=== PATIENT | female | born 1935 | race Caucasian/White ===

== ENCOUNTER 2016-12-29 15:47 | Inpatient (IN) ==
[2016-12-29 16:43] LABS: MANUAL DIFF NEEDED? NO
[2016-12-29 16:59] LABS: EOS# 0.12 X1000 (0.0-0.7); HEMATOCRIT 34.1 % (37.0-47.0); LYMPH# 2.11 X1000 (1.2-3.4); MCHC 32.3 g/dL (33-37); MCV 92.9 FL (81-99); MONO# 0.33 X1000 (0.11-0.59); MONO% 8.1 % (1.7-9.3); NEUT% 35.9 % (42.2-75.2); PLT 205 X1000 (130-400); RBC 3.67 XMIL (4.2-5.4)
--- NOTE | 2016-12-29 17:03 | PROVIDER DOCUMENTATION ---
HPI-General Adult - General Chief Complaint: Altered Mental Status Stated Complaint: AMS/DEMENTIA Time Seen by Provider: 12/29/16 16:46 Source: family Allergies/Adverse Reactions: Patient Allergies Allergy/AdvReac Type Severity Reaction Status Date / Time No Known Allergies Allergy Verified 12/24/16 14:49 Home Medications: Home Medication List Medication Instructions Recorded Confirmed Last Taken Type Omeprazole 20 mg PO DAILY 06/18/15 12/29/16 12/29/16 07:00 History 20 MG Tramadol [Ultram] 50 mg PO QAM 06/18/15 12/29/16 12/29/16 07:00 History 50 MG Tramadol [Ultram] 100 mg PO QHS 09/19/16 12/29/16 12/28/16 20:00 History 100 MG Divalproex E.r. [Depakote ER] 1,000 mg PO QHS 30 Days 10/13/16 12/29/16 20:00 Rx 1000 MG Docusate Sodium [Colace] 100 mg PO QHS #30 capsule 10/13/16 12/29/16 12/28/16 20 :00 Rx 100 MG Donepezil [Aricept] 10 mg PO QHS 30 Days 10/13/16 12/29/16 12/28/16 20:00 Rx 10 MG Duloxetine [Cymbalta] 30 mg PO QHS 30 Days 10/13/16 12/29/16 12/28/16 20:00 Rx 30 MG Mirtazapine [Remeron] 15 mg PO QHS #30 tablet 10/13/16 12/29/16 12/28/16 20:00 Rx 15 MG Multivit,Fe,Ca,FA & Min [Thera M 1 each PO DAILY #30 tablet 10/13/16 12/29/16 07:00 Rx Plus] 1 EACH Polyethylene Glycol 3350 [Miralax] 17 gm PO DAILY #30 powder, packet 10/13/1612/29/16 07:00 Rx 17 GM Risperidone [Risperdal M-Tab] 0.5 mg PO QAM #30 tab.rapdis 10/13/16 12/29/1609/16 07:00 Rx 0.5 MG Risperidone [Risperdal M-Tab] 2 mg PO QHS #30 tab.rapdis 10/13/16 12/29/1612/28 20:00 Rx 2 MG Trazodone [Desyrel] 50 mg PO QHS #30 tablet 10/13/16 12/29/16 12/28/16 20:00 Rx 50 MG - History of Present Illness -Gen Adult Nature of Presenting Problems: 81 year old WF presents with daughter. daughter (who is primary caregiver) reports her mother has dementia/alzheimers and over the last week, the patient has been unable to ambulate. daughter reports prior to a week ago, pt was using walker. over the last week, pt has developed the inability to walk and when she does, the gait is a shuffling gait. daughter reports pt has been eating/ drinking well without NVD/F/C. pt is in no distress. easily awakens to verbal/ tactile stimulus. Review of Systems - Adult - REVIEW OF SYSTEMS - ADULT Constitutional: reports: no symptoms reported. denies: chills, fever, fatique Eyes: reports: no symptoms reported. denies: discharge, redness Ears, Nose, Mouth & Throat: reports: no symptoms reported. denies: hoarseness, throat pain, throat swelling Cardiovascular: reports: no symptoms reported. denies: chest pain, palpitations , syncope Respiratory: reports: no symptoms reported. denies: chronic cough, cough, shortness of breath, wheezing Gastrointestinal: reports: no symptoms reported. denies: abdominal pain, diarrhea, difficulty swallowing, nausea, poor appetite, vomiting Genitourinary: reports: see HPI, frequent UTI's. denies: dysuria, hematuria, urgency Musculoskeletal: reports: no symptoms reported. denies: bone pain, joint pain, joint swelling, neck pain Integumentary: reports: no symptoms reported. denies: hives, itching, skin sores/ulcer Neurological: reports: see HPI. denies: syncope Psychiatric: reports: see HPI, depression Endocrine: reports: no symptoms reported Hematologic/Lymphatic: reports: no symptoms reported Allergic/Immunologic: reports: no symptoms reported, frequent infections All Other Systems: Reviewed and Negative Past History - Adult - PAST MEDICAL HISTORY-ADULT Review of Records: reports: Old Records Reviewed, Nursing Assessment Review, Medications Reviewed, Social history reviewed & non-contributory. Major Childhood Illnesses: reports: denies history Cardiovascular: reports: HTN (pt was removed from all HTN meds 3mo ago by PMD), hyperlipidemia Respiratory: reports: denies history Gastrointestinal: reports: GERD Obstetrical/Gynecological: reports: denies history Genitourinary: reports: chronic UTI's Musculoskeletal: reports: denies history Neurological: reports: Alzheimer's, dementia Psychiatric: reports: other (dementia/paranoia) Endocrine/Immune: reports: denies history Other Conditions: reports: denies history - PRIOR SURGERIES/PROCEDURES Surgical/Procedure History: reports: appendectomy, cholecystectomy, hysterectomy , hernia repair - IMMUNIZATION STATUS Childhood Immunizations: See Nurse Assessment Flu Vaccine: See Nurse Assessment - FAMILY HISTORY Family History: reviewed, not pertinent - SOCIAL HISTORY Smoking: denies, non-smoker Substance Use: none/never Alcohol Use Frequency: never Physical Exam-General - PHYSICAL EXAM-ADULT Initial Vital Signs Reviewed: Yes - CONSTITUTIONAL General Appearance: appears well, alert, no apparent distress. negative: mild distress, moderate distress, severe distress - EYES Eyes: pink conjunctivae. negative: PERRL/EOMI (right pupil shaped like a cashew , isnot round, reactive to light; left pupil is pinpoint, nonreactive.), conjuctival exudate, photophobia, sclera injected, scleral icterus - HEAD, EARS, NOSE, MOUTH & THROAT HENMT: normocephalic/atraumatic, moist mucous membranes, normal ENT inspection, TMs normal. negative: pharynx normal, pharyngeal erythema, tonsillar exudate - NECK Neck: non-tender, full range of motion, supple, normal inspection. negative: C- spine tenderness, limited range of motion, tender lateral, tender midline - RESPIRATORY Respiratory: chest non-tender, lungs clear, normal breath sounds, no pleuratic chest pain, no respiratory distress, no accessory muscle use. negative: respiratory distress, decreased breath sounds, accessory muscle use, crackles, rales, rhonchi, stridor, wheezing - CARDIOVASCULAR Cardiovascular: normal peripheral pulses, regular rate, rhythm - GASTROINTESTINAL (ABDOMEN) Abdominal Exam: normal bowel sounds, non tender, soft. negative: distended, guarding, rigid, tenderness - MUSCULOSKELETAL Back Exam: normal inspection, no CVA tenderness, no vertebral tenderness. negative: CVA tenderness, decreased range of motion, swelling, vertebral tenderness Extremity: normal range of motion, non-tender, normal inspection, no pedal edema , no calf tenderness, normal capillary refill, pelvis stable. negative: normal gait, abnormal NV exam, calf tenderness, deformity, erythema, inflammation, slow capillary refill, swelling, tenderness Peripheral Pulses: radial (R): 3+, radial (L): 3+, dorsalis-pedis (R): 3+, dorsalis-pedis (L): 3+ - SKIN Integumentary: normal color, normal turgor, warm/dry. negative: pallor, petechiae, purpura, rash, swelling - NEUROLOGIC Neurologic: no motor/sensory deficits, abnormal gait (shuffling gate, pt was able to ambulate several steps), negative romberg's sign. negative: facial droop, focal weakness, motor weakness, sensory deficit - PSYCHIATRIC Psych/Mental Status: disoriented x 3 (pt unable to tell me date, time, event leading to ED visit; she reports she is 35 year old), depressed affect. negative: normal mood/affect, normal thought content, normal thought process, oriented x 3 Progress - PLAN OF CARE/RESULTS Progress/Plan/Lab Results: Vital Signs - 8 hr 12/29/16 15:59 Temperature 97.9 F Pulse Rate 75 Respiratory Rate 18 Blood Pressure 202/66 O2 Sat by Pulse Oximetry 100 Laboratory Results - last 24 hr 12/29/16 16:32 WBC 4.06 L RBC 3.67 L Hgb 11.0 L Hct 34.1 L MCV 92.9 MCH 30.0 MCHC 32.3 L RDW Std Deviation 15.6 H Plt Count 205 MPV 9.0 Immature Gran % (Auto) 0.0 Neut % (Auto) 35.9 L Lymph % (Auto) 52.0 H [place] % (Auto) 8.1 Eos % (Auto) 3.0 Baso % (Auto) 1.0 H Immature Gran # (Auto) 0.00 Neut # (Auto) 1.46 Lymph # (Auto) 2.11 [place] # (Auto) 0.33 Eos # (Auto) 0.12 Baso # (Auto) 0.04 Orders Category Date Time Status Saline Loc NOW Care 12/29/16 16:05 Active CHEST-2 VIEWS [RAD] Stat Exams 12/29/16 16:06 Taken HEAD W/O CONTRAST [CT] Stat Exams 12/29/16 16:05 Ordered BLOOD CULTURE [BLDCUL] Stat Lab 12/29/16 16:32 Received CBC WITH ELECTRONIC DIFF [HEME] Stat Lab 12/29/16 16:32 Completed CK PROFILE [SP CHEM] Stat Lab 12/29/16 16:32 Received COMPREHENSIVE METABOLIC PANEL [CHEM] Stat Lab 12/29/16 16:32 Received LACTATE, PLASMA [CHEM] Stat Lab 12/29/16 16:32 Received PROTIME WITH INR [COAG] Stat Lab 12/29/16 16:32 Received PTT [COAG] Stat Lab 12/29/16 16:32 Received TROPONIN T Stat Lab 12/29/16 16:32 Received URINALYSIS W/POSS RFLX CULT-1 [URINALYSIS] Stat Lab 12/29/16 16:05 Uncollected URINE DRUG SCREEN Stat Lab 12/29/16 16:05 Uncollected VALPROIC ACID [TDM] Stat Lab 12/29/16 16:58 Ordered EKG [EKG] Stat Ther 12/29/16 16:05 Ordered Vital Signs - 24 hr 12/29/16 15:59 Temperature 97.9 F Pulse Rate 75 Respiratory Rate 18 Blood Pressure 202/66 O2 Sat by Pulse Oximetry 100 Result Diagrams: 12/29/16 16:32 12/29/16 16:32 - XRAY 1 XRAY Study: Chest Impression: Normal (per radiologist) - CT/MRI 1 CT Study: Head Impression: Normal (per radiologist) - CONSULTS/PCP/HOSPITALIST Notification #1 *Consult/PCP/Hospitalist*: Dr. Voss Time Discussed: 18:10 Consult Disposition: Will see in ED, Admit Departure - Departure Time of Disposition Decision: 18:14 DIAGNOSIS: Unable to ambulate Disposition: ADMITTED INPATIENT 09 Certified Medical Emergency: Emergent Condition: Stable - Critical Care Note This patient required my direct & personal management of CC.: No Attestation - Physician/ TORY Attestation Patient care was provided by Advanced Practice Provider:: Yes Advanced Practice Provider:: Patric Dobbins Advanced Practice Provider documentation review:: The Mid-level provider documentation, treatment plan and medical decision making was reviewed by the physician who agrees with all treatment and medical decision making by the P.
[2016-12-29 17:08] LABS: INR 1.04; PTT 25.8 Seconds (22.0-36.0)
[2016-12-29 17:17] LABS: AGAP 11; ALBUMIN 2.9 g/dL (3.5-5.0); ALKALINE PHOSPHATASE 94 U/L (32-104); BUN 20 mg/dL (8-22); CALCIUM 8.7 mg/dL (8.8-10.2); CHLORIDE 104 mmol/L (98-107); CK PROFILE 61 U/L (24-173); COSMO 289; GOT 24 U/L (10-30); GPT 10 U/L (10-36); POTASSIUM 3.8 mmol/L (3.5-5.1); SODIUM 144 mmol/L (136-145); TCO2 29 mmol/L (25-35); TOTAL BILIRUBIN 0.18 mg/dL (0.20-1.00)
[2016-12-29 17:27] LABS: URINE CULTURE NEEDED? NO; URINE MICRO REVIEW NEEDED? NO; URINE SOURCE CATH
[2016-12-29 17:36] LABS: BILIRUBIN URINE NEGATIVE (NEGATIVE); COLOR YELLOW; GLUCOSE URINE NEGATIVE (NEGATIVE); LEUKOCYTES URINE NEGATIVE (NEGATIVE); NITRITE URINE NEGATIVE (NEGATIVE); PROTEIN URINE 30 mg/dL (NEGATIVE); SP GRAVITY URINE 1.012; TURBIDITY URINE CLEAR (CLEAR); UROBILINOGEN URINE NORMAL (NORMAL)
[2016-12-29 17:44] LABS: UR AMPHETAMINES QUAL NONE DETECTED (NONE DETECT); UR BARBITUATES QUAL NONE DETECTED (NONE DETECT); UR BENZODIAZEPIN QUAL NONE DETECTED (NONE DETECT); UR CANNABINOIDS QUAL NONE DETECTED (NONE DETECT); UR COCAINE QUAL NONE DETECTED (NONE DETECT); UR METHADONE QUAL NONE DETECTED (NONE DETECT); UR OPIATES QUAL NONE DETECTED (NONE DETECT); UR OXYCODONE QUAL NONE DETECTED (NONE DETECT); UR PCP QUAL NONE DETECTED (NONE DETECT)
[2016-12-29 17:49] LABS: BLOOD URINE NEGATIVE (NEGATIVE); UR EPITHELIAL CELLS <10 /HPF (<10); URINE BACTERIA NEGATIVE /HPF; URINE RBC <10 /HPF (<10); URINE WBC <10 /HPF (<10)
--- NOTE | 2016-12-29 17:56 | Diag Imaging Result Document ---
PROCEDURE NAME: HEAD W/O CONTRAST - 12/29/2016 CT HEAD WITHOUT CONTRAST: FINDINGS: A dose reduction protocol was used. Compared with 12/24/2016. There are some atrophic changes similar to the previous exam. There are moderate chronic microvascular ischemic changes similar to the previous exam. There is no indication of recent infarct, although acute infarcts may not be immediately visible. There is no evidence of hemorrhage, mass effect or midline shift. IMPRESSION: Atrophic changes and chronic microvascular ischemic changes similar to 12/24/2016. No visible acute process. No hemorrhage or mass effect.
--- NOTE | 2016-12-29 18:12 | Diag Imaging Result Document ---
PROCEDURE NAME: CHEST-2 VIEWS - 12/29/2016 FRONTAL AND LATERAL CHEST, 2 VIEWS: The lungs are well expanded. The heart is mildly prominent. The vessels are not distended. No pleural effusions. Mild regurgitation paratracheal prominence has an appearance similar to that of the prior exam. No free air beneath the diaphragm. IMPRESSION: Stable chest.
[2016-12-29] MEDS ORDERED: APRESOLINE IV ONE (19:54)
--- NOTE | 2016-12-29 20:57 | HISTORY AND PHYSICAL ---
PRIMARY CARE PHYSICIAN: Dr. Asher REASON FOR ADMISSION: Two or 3 day history of progressive weakness and confusion. HISTORY OF PRESENT ILLNESS: Ms. Leila Koehler is an 81-year-old lady with past medical history of dementia, rheumatoid arthritis, reflux disease, hyperlipidemia. She has been admitted to the behavioral unit at [facility] on a few occasions. She was seen in the ER about a week ago because of generalized weakness and sent home. She was brought in by the family because of concerns about the patient who lives alone, that her weakness has progressed over the last 3 days. They also noted she is more confused than usual. I am unable to get any meaningful history from this patient. She denies any pain and denies any breathing difficulty. She does agree that she is weak but that is the extent of the history I could get from the patient. She will follow basic commands, however. REVIEW OF SYSTEMS: For obvious reasons could not be obtained and there were no family members at bedside. ALLERGIES: No known allergies. MEDICATIONS: She takes the following medications: Depakote 1000 mg daily, Colace 100 mg at bedtime, Aricept 10 mg daily, Cymbalta 30 mg at bedtime, Remeron 50 mg at bedtime, multivitamin tablets once a day, omeprazole 20 mg daily, MiraLAX 17 g daily, risperidone 0.25 mg in the morning and 2 mg at bedtime, tramadol 50 mg q.a.m., tramadol 100 mg at bedtime, trazodone 50 mg at bedtime. FAMILY HISTORY: Cannot be obtained. No family members at bedside. SOCIAL HISTORY: Apparently patient lives alone per the nurse. No reported history of alcohol or drug use per old records. PAST SURGICAL HISTORY: Per old records, umbilical hernia repair, cholecystectomy, appendectomy, hysterectomy. LABORATORY WORK: White count 4000, hemoglobin and hematocrit of 11 and 34, platelets 205,000 with slightly elevated lymphocytosis. Chemistry: BUN 20, creatinine 0.8. Calcium 8.7. Troponin is negative. CK 61. Albumin 2.9. Lactate 1.6. PTT is normal. Urinalysis is grossly normal. Urine drug screen essentially negative. Valproic acid level was 34. Urinalysis is essentially within normal limits. CT head just showed old unchanged atrophic changes from prior CT scan and no acute intracranial process. Chest x-ray is also clear. EKG shows normal sinus rhythm. No ST changes. PHYSICAL EXAMINATION: VITAL SIGNS: Blood pressure between 211 to 220 systolic to diastolic range of 104 to 120. Temperature 96.2 degrees, respirations 18, pulse 66, O2 saturation 100% on room air. GENERAL: She is a chronically ill, mildly anorexic, elderly woman, who portrays no distress whatsoever. She is alert and oriented to person. Affect appears to be normal as is her mood. HEENT: Head is normocephalic, atraumatic. Eyes, PERRL, EOMI. She is anicteric and not pale. ENT and oropharynx exam is grossly normal except for some mild xerostomia. No sinus cyanosis. NECK: Neck is supple. She has no JVD but mild hepatojugular reflux. No bruit. No thyromegaly. CHEST: Clear to auscultation with diminshed air entry in both lung lowery. CARDIOVASCULAR: 1st, 2nd, and 4th heart sounds are heard. No other gallops heard. No murmurs appreciated. Rhythm is regular. ABDOMEN: Protuberant, soft, nontender. No mass, megaly. Bowel sounds are hypoactive. RECTAL: Deferred at this time. EXTREMITIES: Patient has slight tremors distally in her extremities. Pulses distally in all extremities have good volume and are symmetrical. No clubbing or peripheral cyanosis. No edema. NEUROLOGICAL EXAMINATION: No gross focal deficits although this exam was very limited. Cranial nerves II through XII grossly intact although limited because patient did not follow all my commands especially as it relates to her 7th cranial nerve. Otherwise her motor power rated 3 to 4 over 5 on the upper extremity and 2 to 3 in the lower extremities. SKIN: Intact. No breakdown, lesion, edema. Mild decreased skin turgor. VASCULAR: Exam appears grossly normal visually. She has normal tone. ASSESSMENT: 1. Uncontrolled hypertension, new onset versus subclinical cerebrovascular accident. 2. Dehydration. 3. Encephalopathy? hypotensive encephalopathy versus toxic encephalopathy from medication. 4. Dementia with behavioral disturbances. 5. Anemia of chronic anemia, probably of chronic inflammation. 6. Moderate malnutrition. 7. Dehydration. PLAN: At this time patient will be admitted and subsequently worked up for etiology of her acute confusional decline. If the patient is still confused, it would not be out of place to proceed with MRI to rule out occult subclinical CVA which her on usual blood pressure could be reflective of. However, otherwise if the patient's cognitive decline has stabilized, would suggest just treating her blood pressure cautiously and in addition to this, hydrated her because she appears to be slightly dehydrated clinically and per her lab work. Consult social scientist to get her admitted. Anemia workup is currently being ordered to see if there is any other possible reversible etiology for her confusion. Start patient on antihypertensive and cautiously as stated earlier, control her blood pressure. Consult physical therapy. DVT prophylaxis will be instituted as the patient does not appear to be very active and has been pretty much almost bed- bound. I will take the liberty of starting low-dose aspirin just in case this unusual blood pressure may represent subclinical CVA. cc: Adi Guerin MD Primary care physician ELIANE
[2016-12-29] MEDS ORDERED: NORVASC PO ONE ×2 (21:32→23:51)
[2016-12-29] MEDS ORDERED: NS 1,000 ML IV SCH (23:51)
[2016-12-29] MEDS ORDERED: NORCO-7.5 PO PRN (23:51)
[2016-12-29] MEDS ORDERED: ASPIRIN PO ONE (23:51)
[2016-12-29] MEDS ORDERED: TYLENOL PO PRN (23:51)
[2016-12-29] MEDS ORDERED: ZOFRAN IV PRN (23:51)
[2016-12-30] MEDS: COLACE PO SCH ×2 (00:22→22:06)
[2016-12-30] MEDS: ARICEPT PO SCH ×2 (00:22→22:06)
[2016-12-30] MEDS: CYMBALTA PO SCH ×2 (00:22→22:06)
[2016-12-30] MEDS: LOVENOX SUBQ SCH ×2 (00:23→22:07)
[2016-12-30] MEDS: DEPAKOTE ER PO SCH ×2 (00:23→22:07)
[2016-12-30 01:26] LABS: MAGNESIUM 1.8 mg/dL (1.5-2.7)
[2016-12-30 05:32] LABS: MANUAL DIFF NEEDED? NO
[2016-12-30 05:49] LABS: BASO% 0.4 % (0.0-0.8); EOS# 0.12 X1000 (0.0-0.7); EOS% 2.2 % (0.0-10.0); HEMATOCRIT 33.8 % (37.0-47.0); HEMOGLOBIN 11.2 g/dL (12.0-16.0); LYMPH# 2.99 X1000 (1.2-3.4); LYMPH% 55.1 % (20.5-51.1); MCH 30.2 PG (27-31); MCHC 33.1 g/dL (33-37); MCV 91.1 FL (81-99); MONO# 0.33 X1000 (0.11-0.59); MONO% 6.1 % (1.7-9.3); MPV 8.7 FL (7.4-10.4); NEUT% 36.2 % (42.2-75.2); PLT 194 X1000 (130-400); RBC 3.71 XMIL (4.2-5.4)
[2016-12-30 05:55] LABS: AGAP 10; BUN 16 mg/dL (8-22); CALCIUM 8.9 mg/dL (8.8-10.2); CHLORIDE 104 mmol/L (98-107); COSMO 284; POTASSIUM 3.3 mmol/L (3.5-5.1); SODIUM 142 mmol/L (136-145); TCO2 28 mmol/L (25-35)
[2016-12-30] MEDS: NORVASC PO SCH (09:00)
[2016-12-30] MEDS: THERA M PLUS PO SCH (09:00)
[2016-12-30] MEDS: MIRALAX PO SCH (09:00)
[2016-12-30] MEDS: PRILOSEC PO SCH (09:00)
[2016-12-30] MEDS: RISPERDAL M-TAB PO SCH (09:00)
[2016-12-30] MEDS ORDERED: VENOFER 300 MG in NS 250 ML IV ONE (14:20)
[2016-12-30] MEDS: NS 1,000 ML IV SCH (14:22)
--- NOTE | 2016-12-30 14:50 | PROGRESS NOTE ---
DATE: 12/30/2016 SUBJECTIVE: Today, Ms. Koehler referred to be doing a little better. She did not really have any complaints. OBJECTIVE: Vital signs: Blood pressure is 154/72, pulse 92, respirations 18, temperature is 98 degrees. General: Ms. Koehler is an 81-year-old female. She was in bed. She did not seem to be in any distress. HEENT: Mucosa is pink and dry. Anicteric. Acyanotic. Neck: Supple. Chest: Clear. Cardiovascular: Regular rate and rhythm. Abdomen: Soft, is nontender. Bowel sounds are present. There is no hepatosplenomegaly, there is an old right upper quadrant surgical scar consistent with a possible cholecystectomy. Extremities: No pedal edema. SAMPLE CUTTER: Patient is alert, is awake, is oriented to person and to place. Disoriented to time. LABORATORY DATA: WBC is 5.43. Hemoglobin 11.2, platelet count of 194,000. Chemistries reviewed, completely normal, except for potassium of 3.3. Ferritin is 25, ridiculously low. Iron is 37, also low. TSH is 8.35. ASSESSMENT: Ms. Koehler is an 81-year-old female, who was brought in to the hospital for generalized weakness and confusion. This afternoon she looks more alert. I think most of her problem is due to severe dehydration. We will make sure we correct all the underlying electrolyte abnormalities as well. She is also on a lot of sedatives/antipsychotic which I think we will have to be extremely careful with them. 1. Toxic metabolic encephalopathy. 2. Iron deficiency anemia. 3. Clinical dehydration. 4. Subclinical hypothyroidism. PLAN: We will going to do TPO antibodies. We will also do lipids to check on the cholesterol to see if we would need to treat. The patient really does not have chronic symptoms. However the generalized weakness, the confusion/cognitive decline could all be potential manifestations of hypothyroidism. We will go ahead and start her on therapy. Will continue with the IV fluids and give her 300 mg iron infusion cc: Donal Monsivais MD [facility] CENTERJuanito
[2016-12-31] MEDS: LOVENOX SUBQ SCH ×2 (04:07→21:53)
[2016-12-31] MEDS: NS 1,000 ML IV SCH ×3 (04:08→17:14)
[2016-12-31 06:20] LABS: MANUAL DIFF NEEDED? NO
[2016-12-31 06:33] LABS: BASO% 0.5 % (0.0-0.8); EOS# 0.12 X1000 (0.0-0.7); EOS% 2.8 % (0.0-10.0); HEMATOCRIT 30.8 % (37.0-47.0); HEMOGLOBIN 10.1 g/dL (12.0-16.0); LYMPH# 2.16 X1000 (1.2-3.4); LYMPH% 50.6 % (20.5-51.1); MCH 30.1 PG (27-31); MCHC 32.8 g/dL (33-37); MCV 91.9 FL (81-99); MONO# 0.42 X1000 (0.11-0.59); MONO% 9.8 % (1.7-9.3); MPV 9.3 FL (7.4-10.4); NEUT% 36.3 % (42.2-75.2); PLT 189 X1000 (130-400); RBC 3.35 XMIL (4.2-5.4)
[2016-12-31 06:51] LABS: AGAP 10; BUN 12 mg/dL (8-22); CALCIUM 7.9 mg/dL (8.8-10.2); CHLORIDE 103 mmol/L (98-107); COSMO 275; HDL 55 mg/dL (45-65); LDL 75 mg/dL; POTASSIUM 3.2 mmol/L (3.5-5.1); SODIUM 138 mmol/L (136-145); TCO2 25 mmol/L (25-35); TRIGLYCERIDES 89 mg/dL (35-135); VLDL 18 mg/dL
[2016-12-31] MEDS: SYNTHROID PO SCH (06:54)
[2016-12-31] MEDS: PRILOSEC PO SCH (08:30)
[2016-12-31] MEDS: THERA M PLUS PO SCH (08:31)
[2016-12-31] MEDS: NORVASC PO SCH (08:31)
[2016-12-31] MEDS: MIRALAX PO SCH (08:31)
[2016-12-31] MEDS: RISPERDAL M-TAB PO SCH (08:31)
[2016-12-31] MEDS ORDERED: KLOR-CON PO ONE (10:29)
--- NOTE | 2016-12-31 11:18 | PROGRESS NOTE ---
DATE: 12/31/2016 SUBJECTIVE: Today, Ms. Koehler was doing fine. She was actually resting very peacefully in bed. The daughter, who works here in the hospital, was at the bedside. She referred that Ms. Koehler has been up and ate her breakfast. OBJECTIVE: Vital signs: Blood pressure is 187/97, pulse is 69, respirations 18 , temperature 97.8. General: Ms. Koehler is an 81-year-old, female. She was in bed. She did not seem to be in any distress. HEENT: Mucosa is slightly dry. Anicteric. Acyanotic. [place]. Neck: Supple. Chest: Good air entry bilateral. No crepitations. No rhonchi. Cardiovascular: Regular rate and rhythm. Abdomen: Soft, nontender. There is no hepatosplenomegaly. There is an old right upper quadrant surgical scar, consistent with previous cholecystectomy. Extremities: No pedal edema. REGIONAL TRUCK DRIVER: Patient was sleepy, but easily arousable. Follows commands. LABORATORY DATA: WBC is 4.27, hemoglobin is 10.1, platelet count of 189. Chemistry is reviewed. Potassium is 3.2. The rest of chemistry is normal. The patient's ferritin is 25 and vitamin D is 23.4, which is slightly insufficient. B12 and folate is normal. ASSESSMENT AND PLAN: 1. Toxic metabolic encephalopathy. This is progressively improved. 2. Iron deficiency anemia. The patient is status post one infusion of Venofer. Will continue with oral iron medications. 3. Clinical dehydration. Will continue hydration. 4. Subclinical hypothyroidism. We will treat this because patient has cognitive decline. 5. History of dementia with psychotic features. Patient was admitted to [facility] a couple months ago for 3 weeks. Was discharged on Depakote and some other antipsychotics. Will continue the same. 6. Vitamin D insufficiency. Will replace that. So, I think in general, Ms. Koehler is doing fine. We are going to discontinue the Burgos catheter, going to be replacing the thyroid hormones. We have discussed at length with the daughter who is the power of tax attorney, and is a worker in the hospital with some medical background. She eventually wants rehab for her mom, and eventually get her to a long-term care. For today, we will continue with the gentle hydration. We will replace her potassium and continue with iron and vitamin and vitamin D replacement. We anticipate that we will be able to discharge the patient to rehab, hopefully tomorrow or the day after. cc: Donal Monsivais MD MTDD
[2016-12-31] MEDS: ULTRAM PO SCH (21:52)
[2016-12-31] MEDS: DEPAKOTE ER PO SCH (21:52)
[2016-12-31] MEDS: CYMBALTA PO SCH (21:53)
[2016-12-31] MEDS: COLACE PO SCH (21:53)
[2016-12-31] MEDS: ARICEPT PO SCH (21:53)
[2017-01-01] MEDS: NS 1,000 ML IV SCH ×3 (04:06→18:15)
[2017-01-01 05:47] LABS: MANUAL DIFF NEEDED? NO
[2017-01-01 06:03] LABS: BASO% 0.3 % (0.0-0.8); EOS# 0.15 X1000 (0.0-0.7); HEMATOCRIT 31.7 % (37.0-47.0); HEMOGLOBIN 10.4 g/dL (12.0-16.0); LYMPH# 2.19 X1000 (1.2-3.4); LYMPH% 58.4 % (20.5-51.1); MCH 30.1 PG (27-31); MCHC 32.8 g/dL (33-37); MCV 91.9 FL (81-99); MONO# 0.34 X1000 (0.11-0.59); MONO% 9.1 % (1.7-9.3); MPV 8.7 FL (7.4-10.4); NEUT% 28.2 % (42.2-75.2); PLT 181 X1000 (130-400); RBC 3.45 XMIL (4.2-5.4)
[2017-01-01 06:34] LABS: AGAP 8; BUN 8 mg/dL (8-22); CALCIUM 8.5 mg/dL (8.8-10.2); CHLORIDE 111 mmol/L (98-107); COSMO 286; SODIUM 145 mmol/L (136-145); TCO2 26 mmol/L (25-35)
[2017-01-01] MEDS: SYNTHROID PO SCH (07:05)
[2017-01-01] MEDS: MIRALAX PO SCH (09:39)
[2017-01-01] MEDS: ULTRAM PO SCH ×2 (09:40→22:11)
[2017-01-01] MEDS: RISPERDAL M-TAB PO SCH (09:40)
[2017-01-01] MEDS: THERA M PLUS PO SCH (09:41)
[2017-01-01] MEDS: NORVASC PO SCH (09:41)
[2017-01-01] MEDS: PRILOSEC PO SCH (09:41)
--- NOTE | 2017-01-01 10:31 | PROGRESS NOTE ---
DATE: 01/01/2017 SUBJECTIVE: Today, Ms. Koehler refers to be doing fine. She was actually in the bed being dressed by the daughter and a CARROTING MACHINE OPERATOR. OBJECTIVE: Vital Signs: Blood pressure is 180/80, respirations are 16, pulse is 69, temperature is 97.8 degrees. General Examination: Ms. Koehler is an 81-year-old, female. She was in bed, was not in any distress. HEENT: Mucosa is pink and moist. Anicteric and acyanotic. Neck: Supple. Chest: Good air entry bilaterally. No crepitations. No rhonchi. Cardiovascular: Regular rate and rhythm. Abdomen: Soft and nontender. There is no hepatosplenomegaly. There is an old right upper quadrant surgical scar consistent with previous cholecystectomy. Extremities: No pedal edema. AIRCRAFT LIFE SUPPORT FITTER: Patient is awake and alert, and follows commands. Laboratory Data: WBC is 3.75, hemoglobin is 10.4, platelet count of 181,000. Chemistry: Sodium is 145, potassium is 4, chloride is 111, bicarb is 26. ASSESSMENT: 1. Toxic metabolic encephalopathy. This is remarkably improved. 2. Iron deficiency anemia. Patient is status post 1 infusion of Venofer. We will continue with the oral iron supplements. 3. Clinical dehydration, improved. 4. Subclinical hypothyroidism. We are treating because the patient has symptoms of dementia and we think this is probably contributing to that. 5. History of dementia with psychotic features. The patient was admitted to [facility] a couple of weeks ago. She is currently on Depakote and another antipsychotics. 6. Vitamin D insufficiency. We will continue to replace this. PLAN: In general, I think Ms. Koehler is doing a whole lot better. She has been able to sit up in a chair. She is tolerating her diet. Per the daughter, she thinks the mother is looking a whole lot better. We will be awaiting rehab arrangement from the pediatric social worker to discharge the patient. If we are able to get a bed, patient will be discharged today; if not, first thing tomorrow morning. cc: Donal Monsivais MD
[2017-01-01] MEDS: LOVENOX SUBQ SCH (22:11)
[2017-01-01] MEDS: DEPAKOTE ER PO SCH (22:11)
[2017-01-01] MEDS: CYMBALTA PO SCH (22:11)
[2017-01-01] MEDS: ARICEPT PO SCH (22:11)
[2017-01-01] MEDS: COLACE PO SCH (22:11)
[2017-01-02] MEDS: NS 1,000 ML IV SCH (05:45)
[2017-01-02] MEDS: SYNTHROID PO SCH ×2 (05:54→06:03)
[2017-01-02] MEDS: ULTRAM PO SCH (09:28)
[2017-01-02] MEDS: MIRALAX PO SCH (09:30)
[2017-01-02] MEDS: RISPERDAL M-TAB PO SCH (09:30)
[2017-01-02] MEDS: PRILOSEC PO SCH (09:30)
[2017-01-02] MEDS: NORVASC PO SCH (09:30)
[2017-01-02] MEDS: THERA M PLUS PO SCH (09:30)
--- NOTE | 2017-01-02 13:28 | DISCHARGE SUMMARY ---
ADMISSION DATE: 12/29/2016 DISCHARGE DATE: 01/02/2017 PRIMARY PROCEDURE: Head CT showed atrophic changes and chronic microvascular ischemic changes on 12/24/2016. There are no acute processes, no hemorrhage or mass effect. DISCHARGE DIAGNOSES: 1. Toxic metabolic encephalopathy, remarkably improved. 2. Iron deficiency anemia status post one infusion of Venofer. Continue oral iron supplements. 3. Clinical dehydration, improved. 4. Subclinical hypothyroidism. The patient is being treated because of symptoms of dementia, which is contributing to that. 5. History of dementia with psychotic features. The patient was admitted to [facility] a few weeks ago. Currently on Depakote and other antipsychotic. Continue those. 6. Vitamin D deficiency. Continue supplementation. HOSPITAL COURSE: Briefly, Ms. Koehler is an 81-year-old female with past medical history of dementia, rheumatoid arthritis, GERD, hyperlipidemia. She has been admitted to the behavioral unit at [facility] on a few occasions. She was seen in our ED about a week ago because of generalized weakness and sent home. She was brought in again by her family because of concerns that the patient lives alone and that her weakness has progressed over the last few days and she was noted to be more confused than usual. Head CT was performed in the ED and did not show anything acute. Patient was rehydrated. It was felt that most of her issues were coming from severe dehydration. We made sure to correct all underlying electrolyte abnormalities as well. The patient was on a lot of sedatives and antipsychotics. They also did TPO antibodies, as well as lipids to check her cholesterol. The patient did not really have any chronic symptoms, however just generalized weakness, confusion and cognitive decline could all be potential manifestations of hypothyroidism. So, she was started on therapy for that, as well as IV iron infusion with oral supplementation and continued on IV fluids. Clinically the patient has improved. Her toxic metabolic encephalopathy has remarkably improved. Her clinical dehydration has also improved. The patient refers to feeling a whole lot better. She is able to sit up in a chair. She is now tolerating a diet. Even the daughter who has been with the patient feels that she is also looking better. We did contact social media content manager for rehab at discharge. The patient is appropriate for rehab discharge today. VITAL SIGNS: Temperature is 97.6 degrees, heart rate 72, respirations 18, blood pressure 181/70, and O2 is 97% on room air. DISCHARGE DIET: Regular. DISCHARGE MEDICATIONS: As per Dr. Monsivais. Please see MAR. FOLLOW UP: The patient is being discharged to rehab at [facility]. She will need to follow up with her primary care physician, Dr. Asher, in 7-10 days. Patient can return to the ED for any worsening of symptoms. DISCHARGE TIME: 30 minutes. Dictated by DELANEY Patel for Donal Monsivais MD cc: MD Jane Morrow MD
[2017-01-02 14:11] VITALS: BP 179/80
== END 2017-01-02 15:09 ==
LOC: ED 15:47 → SUATTDRO 21:22 → 4N 21:22
PROVIDERS: ATTEND Internal Medicine

== ENCOUNTER 2019-10-24 08:30 | Inpatient (IN) ==
[2019-10-24 09:07] LABS: ALLEN TEST YES; BE 3.4 mmoll (-3.0-3.0); BLOOD TYPE ARTERIAL; HCO3-(ACT) 27.4 mmoll (20.0-26.0); O2(CT) 18.2 mL/dL (15.0-23.0); O2HB 92.7 % (95.0-99.0); PCO2(98.6) 36 mmHg (35-45); PO2(98.6) 61 mmHg (60-100); SAMPLE BLOOD; SAO2 95.2 % (95.0-100.0); pH(98.6) 7.48 (7.35-7.45)
[2019-10-24 09:08] LABS: MODALITY NRB
--- NOTE | 2019-10-24 09:13 | Diag Imaging Result Doc PS360 ---
EXAM: CHEST-1 VIEW HISTORY: sob TECHNIQUE: Single view COMPARISON: 08-03-08. FINDINGS: The lungs are well expanded. The heart is not enlarged. The vessels are not distended. There are base infiltrates. No effusion identified. IMPRESSION: Base infiltrates Electronically signed by Luis Alberto Pulido 10/24/2019 9:11 AM
[2019-10-24 09:22] LABS: BASO# 0.02 X1000 (0.0-0.2); BASO% 0.1 % (0.0-0.8); HEMATOCRIT 43.2 % (37.0-47.0); HEMOGLOBIN 13.1 g/dL (12.0-16.0); IMM GRAN# 0.02 X1000 (0.0-0.04); IMM GRAN% 0.1 % (0.0-0.5); LYMPH# 1.31 X1000 (1.2-3.4); LYMPH% 9.4 % (20.5-51.1); MCHC 30.3 g/dL (33-37); MCV 85.7 FL (81-99); MONO# 0.24 X1000 (0.11-0.59); MONO% 1.7 % (1.7-9.3); MPV 9.6 FL (7.4-10.4); NEUT# 12.29 X1000 (1.4-6.5); NEUT% 88.7 % (42.2-75.2); PLT 410 X1000 (130-400); RBC 5.04 XMIL (4.2-5.4); RDW 15.3 % (11.5-14.5); WBC 13.88 X1000 (4.8-10.8)
[2019-10-24] MEDS ORDERED: NS 1,500 ML IV ONE (09:22)
[2019-10-24 09:26] LABS: INR 1.34; PROTIME 16.8 Seconds (11.0-16.0)
[2019-10-24 09:27] LABS: PTT 39.5 Seconds (22.3-41.8)
[2019-10-24] MEDS ORDERED: PITRESSIN 40 UNIT in NS 100 ML IV SCH (09:30)
[2019-10-24] MEDS ORDERED: EPINEPHRINE 4 MG in NS 250 ML IV SCH (09:30)
[2019-10-24] MEDS ORDERED: ZOSYN 4.5 GM in NS 100 ML IV SCH (09:30)
[2019-10-24] MEDS ORDERED: VANCOMYCIN IV PER PHARMACY MISC SCH (09:30)
[2019-10-24] MEDS ORDERED: LEVOPHED 8 MG in D5 1/2 NS 250 ML IV SCH (09:30)
[2019-10-24 09:35] LABS: AGAP 16; ALB/GLOB RATIO 0.7; ALKALINE PHOSPHATASE 82 U/L (32-104); BUN 19 mg/dL (8-22); CALCIUM 10.4 mg/dL (8.8-10.2); CHLORIDE 103 mmol/L (98-107); COSMO 291; CREATININE 0.8 mg/dL (0.5-0.9); ESTIMATED GFR > 60; GLUCOSE 124 mg/dL (70-104); GOT 18 U/L (10-30); GPT 6 U/L (10-36); POTASSIUM 4.7 mmol/L (3.5-5.1); SODIUM 144 mmol/L (136-145); TCO2 25 mmol/L (25-35); TOTAL BILIRUBIN 0.39 mg/dL (0.20-1.00); TOTAL PROTEIN 7.1 g/dL (6.3-8.3)
--- NOTE | 2019-10-24 09:40 | PROVIDER DOCUMENTATION ---
HPI-Respiratory General - General Chief Complaint: SEPSIS ALERT Stated Complaint: hypoxia Time Seen by Provider: 10/24/19 08:39 Source: family (daughter), half-way records Allergies/Adverse Reactions: Patient Allergies Allergy/AdvReac Type Severity Reaction Status Date / Time No Known Allergies Allergy Verified 10/24/19 10:47 Home Medications: Home Medication List Medication Instructions Recorded Confirmed Last Taken Type Omeprazole 20 mg PO DAILY 06/18/15 10/24/19 12/29/16 07:00 History 20 MG Polyethylene Glycol 3350 [Miralax] 17 gm PO DAILY #30 powder, packet 10/13/16 10/24/19 12/29/16 07:00 Rx 17 GM Alprazolam 1 tab PO TID PRN 10/24/19 10/24/19 Unknown History Ascorbic Acid [Vitamin C] 1 cap PO DAILY 10/24/19 10/24/19 Unknown History Divalproex [Depakote Sprinkle] 2 cap PO HS 10/24/19 10/24/19 Unknown History Divalproex [Depakote Sprinkle] 2 cap PO QAM 10/24/19 10/24/19 Unknown History Duloxetine [Cymbalta] 2 cap PO DAILY 10/24/19 10/24/19 Unknown History Ferrous Sulfate 1 tab PO BID 10/24/19 10/24/19 Unknown History Guaifenesin [Mucus Relief] 1 tab PO TID 10/24/19 10/24/19 Unknown History Hydrocodone/Acetaminophen [[place] 1 tab PO Q4H PRN PRN 10/24/19 10/24/19 Unknown History 5-325 Tablet] Levothyroxine Sodium [Synthroid] 1 tab PO DAILY 10/24/19 10/24/19 Unknown History Mirtazapine [Remeron] 30 mg PO QHS 10/24/19 10/24/19 Unknown History Scopolamine 1.5 mg/72 Hr Patch 1 patch TD DIRECTED 10/24/19 10/24/19 Unknown History [Transderm-Scop] Sucralfate [Carafate] 1 gm PO DIRECTED 10/24/19 10/24/19 Unknown History - History of Present Illness-Resp Nature of Presenting Problem: Patient is an 83 yo F, [facility] resident, with PMH of Dementia, who was sent from the [place] due to low O2 sats. Patient is non-verbal and bedbound at [facility]. Upon arrival, patient was saturating 92% on 10 Lpm non-rebreather. Review of Systems - Adult - REVIEW OF SYSTEMS - ADULT ROS:: unobtainable per condition Constitutional: reports: see HPI Eyes: reports: see HPI Ears, Nose, Mouth & Throat: reports: see HPI Cardiovascular: reports: see HPI Respiratory: reports: see HPI Gastrointestinal: reports: see HPI Genitourinary: reports: see HPI Musculoskeletal: reports: see HPI Integumentary: reports: see HPI Neurological: reports: see HPI Past History - Adult - PAST MEDICAL HISTORY-ADULT Review of Records: reports: Nursing Assessment Review, Medications Reviewed, Social history reviewed & non-contributory. Major Childhood Illnesses: reports: denies history Cardiovascular: reports: HTN (pt was removed from all HTN meds 3mo ago by PMD), hyperlipidemia Respiratory: reports: denies history Gastrointestinal: reports: GERD Obstetrical/Gynecological: reports: denies history Genitourinary: reports: chronic UTI's Musculoskeletal: reports: denies history Neurological: reports: Alzheimer's, dementia Psychiatric: reports: other (dementia/paranoia) Endocrine/Immune: reports: denies history Other Conditions: reports: denies history - PRIOR SURGERIES/PROCEDURES Surgical/Procedure History: reports: appendectomy, cholecystectomy, hysterectomy , hernia repair - IMMUNIZATION STATUS Childhood Immunizations: See Nurse Assessment Flu Vaccine: See Nurse Assessment - FAMILY HISTORY Family History: reviewed, not pertinent Physical Exam-General - PHYSICAL EXAM-ADULT Initial Vital Signs Reviewed: Yes (Tachycardic, tachypnic, low SPO2..) - CONSTITUTIONAL General Appearance: cachetic, other (Non verbal) - EYES Eyes: PERRL/EOMI - HEAD, EARS, NOSE, MOUTH & THROAT HENMT: normocephalic/atraumatic - NECK Neck: non-tender - RESPIRATORY Respiratory: rales (Bilateral lower lung lowery) - CARDIOVASCULAR Cardiovascular: no edema, tachycardia, systolic murmur - GASTROINTESTINAL (ABDOMEN) Abdominal Exam: normal bowel sounds, non tender, soft - LYMPHATIC Lymphatic: no adenopathy - MUSCULOSKELETAL Extremity: other (Upper and lower extremity contractures) - SKIN Integumentary: normal color - NEUROLOGIC Neurologic: other (Bedbound) - PSYCHIATRIC Psych/Mental Status: other (Non verbal) Progress - PLAN OF CARE/RESULTS Progress/Plan/Lab Results: 02/24/20 10:20 Influenza Screen - Final Nasopharyngeal 10/24/19 10:20 Stool Occult Blood (ISI) - Final Stool Laboratory Results - last 24 hr 10/24/19 10/24/19 10/24/19 08:50 08:54 08:54 WBC RBC Hgb Hct MCV MCH MCHC RDW Std Deviation Plt Count MPV Immature Gran % (Auto) Neut % (Auto) Lymph % (Auto) [place] % (Auto) Eos % (Auto) Baso % (Auto) Immature Gran # (Auto) Neut # (Auto) Lymph # (Auto) [place] # (Auto) Eos # (Auto) Baso # (Auto) Segmented Neutrophils Band Neutrophils Lymphocytes Monocytes PT INR PTT (Actin FS) Specimen Type ARTERIAL Sample Site R RADIAL pH 7.48 H pCO2 36 pO2 61 HCO3 27.4 H Base Excess 3.4 H Oxyhemoglobin 92.7 L ABG O2 Sat (Calculated) 18.2 ABG O2 Saturation 95.2 ABG Carboxyhemoglobin 1.60 ABG Methemoglobin 1.0 Anirudh Test YES A-a O2 Difference 607.0 Total Hemoglobin 14.0 Lactate 2.80 H Liter Flow 15.0 Blood Gas Modality NRB FiO2 % 100.0 Sodium 144 Potassium 4.7 Chloride 103 Carbon Dioxide 25 Anion Gap 16 BUN 19 Creatinine 0.8 Estimated GFR/1.73 m2 > 60 BUN/Creatinine Ratio 24 Glucose 124 H Calculated Osmolality 291 Calcium 10.4 H Total Bilirubin 0.39 AST 18 ALT 6 L Alkaline Phosphatase 82 Creatine Kinase Troponin T High Sens Total Protein 7.1 Albumin 3.0 L Globulin 4.1 Albumin/Globulin Ratio 0.7 Plasma Lactate 2.7 H Urine Source Urine Color Urine Turbidity Urine pH Ur Specific [place] Urine Protein Ur Glucose (Stick) Ur Ketones (Stick) Urine Blood Urine Nitrite Urine Bilirubin Urobilinogen Dipstick Urine Leukocytes Urine WBC (Auto) Urine RBC (Auto) U Epithel Cells (Auto) Urine Bacteria (Auto) Urine Crystals Small Round Cells Urine Casts Urine Yeast-like Cells 10/24/19 10/24/19 10/24/19 08:54 08:54 08:54 WBC 13.88 H RBC 5.04 Hgb 13.1 Hct 43.2 MCV 85.7 MCH 26.0 L MCHC 30.3 L RDW Std Deviation 15.3 H Plt Count 410 H MPV 9.6 Immature Gran % (Auto) 0.1 Neut % (Auto) 88.7 H Lymph % (Auto) 9.4 L [place] % (Auto) 1.7 Eos % (Auto) 0.0 Baso % (Auto) 0.1 Immature Gran # (Auto) 0.02 Neut # (Auto) 12.29 H Lymph # (Auto) 1.31 [place] # (Auto) 0.24 Eos # (Auto) 0.00 Baso # (Auto) 0.02 Segmented Neutrophils 52 Band Neutrophils 32 H Lymphocytes 12 L Monocytes 4 PT 16.8 H INR 1.34 PTT (Actin FS) 39.5 Specimen Type Sample Site pH pCO2 pO2 HCO3 Base Excess Oxyhemoglobin ABG O2 Sat (Calculated) ABG O2 Saturation ABG Carboxyhemoglobin ABG Methemoglobin Anirudh Test A-a O2 Difference Total Hemoglobin Lactate Liter Flow Blood Gas Modality FiO2 % Sodium Potassium Chloride Carbon Dioxide Anion Gap BUN Creatinine Estimated GFR/1.73 m2 BUN/Creatinine Ratio Glucose Calculated Osmolality Calcium Total Bilirubin AST ALT Alkaline Phosphatase Creatine Kinase Troponin T High Sens 51 H Total Protein Albumin Globulin Albumin/Globulin Ratio Plasma Lactate Urine Source Urine Color Urine Turbidity Urine pH Ur Specific [place] Urine Protein Ur Glucose (Stick) Ur Ketones (Stick) Urine Blood Urine Nitrite Urine Bilirubin Urobilinogen Dipstick Urine Leukocytes Urine WBC (Auto) Urine RBC (Auto) U Epithel Cells (Auto) Urine Bacteria (Auto) Urine Crystals Small Round Cells Urine Casts Urine Yeast-like Cells 10/24/19 10/24/19 08:54 10:15 WBC RBC Hgb Hct MCV MCH MCHC RDW Std Deviation Plt Count MPV Immature Gran % (Auto) Neut % (Auto) Lymph % (Auto) [place] % (Auto) Eos % (Auto) Baso % (Auto) Immature Gran # (Auto) Neut # (Auto) Lymph # (Auto) [place] # (Auto) Eos # (Auto) Baso # (Auto) Segmented Neutrophils Band Neutrophils Lymphocytes Monocytes PT INR PTT (Actin FS) Specimen Type Sample Site pH pCO2 pO2 HCO3 Base Excess Oxyhemoglobin ABG O2 Sat (Calculated) ABG O2 Saturation ABG Carboxyhemoglobin ABG Methemoglobin Anirudh Test A-a O2 Difference Total Hemoglobin Lactate Liter Flow Blood Gas Modality FiO2 % Sodium Potassium Chloride Carbon Dioxide Anion Gap BUN Creatinine Estimated GFR/1.73 m2 BUN/Creatinine Ratio Glucose Calculated Osmolality Calcium Total Bilirubin AST ALT Alkaline Phosphatase Creatine Kinase 54 Troponin T High Sens Total Protein Albumin Globulin Albumin/Globulin Ratio Plasma Lactate Urine Source CATH Urine Color YELLOW Urine Turbidity HAZY Urine pH 6.5 Ur Specific [place] 1.026 Urine Protein 200 A Ur Glucose (Stick) NEGATIVE Ur Ketones (Stick) TRACE A Urine Blood MODERATE A Urine Nitrite NEGATIVE Urine Bilirubin NEGATIVE Urobilinogen Dipstick 2 A Urine Leukocytes NEGATIVE Urine WBC (Auto) <10 Urine RBC (Auto) <10 U Epithel Cells (Auto) <10 Urine Bacteria (Auto) 4+ Urine Crystals Not Reportable Small Round Cells Not Reportable Urine Casts Not Reportable Urine Yeast-like Cells NONE SEEN Orders Category Date Time Status [facility] Routine AdmDCTranf 10/24/19 10:23 Active Activity - Up with Assistance ORDERED Care 10/24/19 13:36 Active Apply Mechanical Device [QM] ORDERED Care 10/24/19 13:36 Active Cardiac Monitoring NOW Care 10/24/19 08:57 Active DVT/PE Risk Assess/Protocol [QM] ORDERED Care 10/24/19 09:22 Active Elevate Head of Bed DIRECTED Care 10/24/19 13:36 Active Encourage Fluids DIRECTED Care 10/24/19 13:36 Active [place] Cath Insertion ORDERED Care 10/24/19 09:22 Active IV Insertion ORDERED Care 10/24/19 09:22 Completed IV Insertion NOW Care 10/24/19 08:57 Completed Intake and Output-Strict ORDERED Care 10/24/19 09:22 Active Intake and Output-Strict Q 8-HR ASSESS Care 10/24/19 13:36 Active NEWS Score >or=5:Order NEWS Bundle S.O. NOW Care 10/24/19 08:55 Active Notify Physician ORDERED Care 10/24/19 09:22 Active Notify Physician if: ORDERED Care 10/24/19 09:22 Active Notify Provider of NEWS Score NOW Care 10/24/19 08:57 Active Nursing- Assist w/ IS as order ORDERED Care 10/24/19 13:36 Active Nursing- MD Consult Request ROUTINE Care 10/24/19 10:23 Completed Resuscitation Status Routine Care 10/24/19 10:14 Ordered Sepsis Bolus Completion ORDERED Care 10/24/19 09:22 Active Turn, Cough and Deep Breathe Q2HR Care 10/24/19 13:36 Active Update & Confirm Home Medicati ROUTINE Care 10/24/19 10:23 Completed Vital Signs Order Q 4-HR ASSESS Care 10/24/19 13:36 Completed Vital Signs Order Q30M Care 10/24/19 09:22 Completed Z-Document. for Tele Applied ORDERED Care 10/24/19 13:36 Active Palliative Care Consult [OM.CSS] Routine Cons 10/24/19 10:23 Active Physician/Provider Consults Routine Cons 10/24/19 10:23 Ordered Social Service Consult Routine Cons 10/24/19 13:36 Active CHEST-1 VIEW [RAD] Stat Exams 10/24/19 08:57 Completed ABG [RESP] Routine Lab 10/24/19 08:50 Completed BLOOD CULTURE [BLDCUL] Stat Lab 10/24/19 08:55 Results CBC WITH DIFF [HEME] Q24H Lab 10/25/19 06:00 Ordered CBC WITH DIFF [HEME] Q24H Lab 10/26/19 06:00 Ordered CBC WITH DIFF [HEME] Q24H Lab 10/27/19 06:00 Ordered CBC WITH DIFF [HEME] Q24H Lab 10/28/19 06:00 Ordered CBC WITH DIFF [HEME] Q24H Lab 10/29/19 06:00 Ordered CBC WITH DIFF [HEME] Q24H Lab 10/30/19 06:00 Ordered CBC WITH DIFF [HEME] Q24H Lab 10/31/19 06:00 Ordered CBC WITH DIFF [HEME] Stat Lab 10/24/19 08:54 Completed CK PROFILE [SP CHEM] Stat Lab 10/24/19 08:54 Completed COMPREHENSIVE METABOLIC PANEL [CHEM] Q24H Lab 10/25/19 06:00 Ordered COMPREHENSIVE METABOLIC PANEL [CHEM] Q24H Lab 10/26/19 06:00 Ordered COMPREHENSIVE METABOLIC PANEL [CHEM] Q24H Lab 10/27/19 06:00 Ordered COMPREHENSIVE METABOLIC PANEL [CHEM] Q24H Lab 10/28/19 06:00 Ordered COMPREHENSIVE METABOLIC PANEL [CHEM] Q24H Lab 10/29/19 06:00 Ordered COMPREHENSIVE METABOLIC PANEL [CHEM] Q24H Lab 10/30/19 06:00 Ordered COMPREHENSIVE METABOLIC PANEL [CHEM] Q24H Lab 10/31/19 06:00 Ordered COMPREHENSIVE METABOLIC PANEL [CHEM] Stat Lab 10/24/19 08:54 Completed INFLUENZA SCREEN A/B Stat Lab 10/24/19 10:20 Completed LACTATE, PLASMA [CHEM] Q3H Lab 10/24/19 08:54 Completed LACTATE, PLASMA [CHEM] Q3H Lab 10/24/19 13:00 Completed LACTATE, PLASMA [CHEM] Q3H Lab 10/24/19 14:42 Completed PROTIME WITH INR [COAG] Stat Lab 10/24/19 08:54 Completed PTT [COAG] Stat Lab 10/24/19 08:54 Completed SPUTUM CULTURE WITH GRAM STAIN [RM] Routine Lab 10/24/19 10:23 Uncollected Stool [OCCULT BLOOD SCREENING] [STOOL] Stat Lab 10/24/19 10:20 Completed TROPONIN T HIGH SENSITIVITY Stat Lab 10/24/19 08:54 Completed URINALYSIS W/POSS RFLX CULT [URINALYSIS] Stat Lab 10/24/19 10:15 Completed URINE MANUAL MICROSCOPIC [URINALYSIS] Stat Lab 10/24/19 10:15 Completed 0.9% Sodium Chloride Inj [Ns] 1,000 ml Med 10/24/19 10:23 Active IV 100 mls/hr 0.9% Sodium Chloride Inj [Ns] 1,500 ml Med 10/24/19 09:22 Discontinued IV 999 mls/hr 0.9% Sodium Chloride Inj [Ns] 100 ml Med 10/24/19 09:30 Discontinued Vasopressin [Pitressin] 40 unit IV As Directed mls/hr 0.9% Sodium Chloride Inj [Ns] 250 ml Med 10/24/19 09:30 Discontinued Epinephrine 4 mg IV As Directed mls/hr Acetaminophen [Tylenol] Med 10/24/19 10:23 Active 650 mg PO Q4H PRN PRN Budesonide [Pulmicort] Med 10/24/19 19:30 Active 0.5 mg INH RTBID Dextrose 5%-0.45% NaCl Inj [D5 1/2 Ns] 250 ml Med 10/24/19 09:30 Discontinued Norepinephrine [Levophed] 8 mg IV As Directed mls/hr Ipratropium [place] Neb [Atrovent Neb] Med 10/24/19 11:30 Active 0.5 mg INH RTQ4H Levalbuterol Neb [Xopenex Neb] Med 10/24/19 11:30 Active 1.25 mg INH RTQ4H Levofloxacin 750 mg/D5w [Levaquin 750 mg/D5w] Med 10/24/19 10:00 Discontinued 750 mg in 150 ml IV Q24H Pharmacy Order [Vancomycin IV Per Pharmacy] Med 10/24/19 09:30 Active 1 each MISC DIRECTED Piperacillin/Tazobactam [Zosyn] 4.5 gm Med 10/24/19 09:30 Discontinued 0.9% Sodium Chloride Inj [Ns] 100 ml IV Q6H Aerosol Treatments Routine Oth 10/24/19 10:23 Completed BIPAP Stat Oth 10/24/19 08:44 Active Incentive Spirometer Routine Oth 10/24/19 13:36 Completed O2 Per Protocol Stat Oth 10/24/19 08:57 Completed Oxygen Device Routine Oth 10/24/19 13:36 Completed Pulse Oximetry Routine Oth 10/24/19 10:23 Completed Telemetry [OM.EQ] Routine Oth 10/24/19 13:36 Active Physical Therapy Eval/Treatment [OM.PT] Routine Ther 10/24/19 13:36 Active Transfer/Admit Order [TRANSFER] Routine Transfer 10/24/19 10:13 Completed Result Diagrams: 10/24/19 08:54 10/24/19 08:54 - CONSULTS/PCP/HOSPITALIST Notification #1 *Consult/PCP/Hospitalist*: Hospitalist [id number] Time Discussed: 09:50 (Will admit to Dr. Monsivais ) Consult Disposition: Admit Departure - Departure Date of Disposition Decision: 10/24/19 Time of Disposition Decision: 09:36 DIAGNOSIS: Elevated lactic acid level, Elevated troponin level Sepsis Qualifiers: Sepsis type: sepsis due to unspecified organism Sepsis acute organ dysfunction status: with acute organ dysfunction Severe sepsis acute organ dysfunction type: acute respiratory failure Acute respiratory failure type: with hypoxia Severe sepsis shock status: unspecified Qualified Code(s): A41.9 - Sepsis, unspecified organism Dementia Qualifiers: Dementia type: unspecified type Dementia behavioral disturbance: without behavioral disturbance Qualified Code(s): F03.90 - Unspecified dementia without behavioral disturbance Pneumonia Qualifiers: Pneumonia type: due to unspecified organism Laterality: bilateral Lung location: lower lobe of lung Qualified Code(s): J18.1 - Lobar pneumonia, unspecified organism Disposition: ADMITTED INPATIENT 09 Certified Medical Emergency: Emergent Condition: Critical - Critical Care Note This patient required my direct & personal management of CC.: Yes Total Time (mins): 35 Critical Care Statement: This patient required my direct personal management to treat or rule out processes, the absence of which, could potentiallly result in sudden, clinically significant life or limb threatening deterioration. Attestation - Physician/ TORY Attestation Patient care was provided by Advanced Practice Provider:: No The physician spent face to face time with patient:: Yes Advanced Practice Provider documentation review:: Supervising physician onsite and consulted in the evaluation and care of this patient. The physician did have a face to face encounter with the patient.
[2019-10-24] MEDS ORDERED: LEVAQUIN 750 MG/D5W 750 MG/150 ML IVPB IV SCH (10:00)
[2019-10-24] MEDS ORDERED: TYLENOL PO PRN (10:23)
[2019-10-24 10:37] LABS: URINE SOURCE CATH
[2019-10-24 10:53] LABS: BILIRUBIN URINE NEGATIVE (NEGATIVE); BLOOD URINE MODERATE (NEGATIVE); COLOR YELLOW; GLUCOSE URINE NEGATIVE (NEGATIVE); KETONE URINE TRACE mg/dL (NEGATIVE); LEUKOCYTES URINE NEGATIVE (NEGATIVE); NITRITE URINE NEGATIVE (NEGATIVE); PH URINE 6.5; PROTEIN URINE 200 mg/dL (NEGATIVE); SP GRAVITY URINE 1.026; TURBIDITY URINE HAZY (CLEAR); UROBILINOGEN URINE 2 mg/dL (NORMAL)
[2019-10-24 10:57] LABS: UR EPITHELIAL CELLS <10 /HPF (<10); URINE BACTERIA 4+ /HPF; URINE RBC <10 /HPF (<10); URINE WBC <10 /HPF (<10)
[2019-10-24 10:59] LABS: BANDS 32 % (0-1); LYMPHS 12 % (21-51); MONO 4 % (1-9); SEGS 52 % (42-75)
--- NOTE | 2019-10-24 11:12 | EKG Report ---
Test Performed on : 10/24/2019 09:31:46 AM Test Reason : HYPOXIA Blood Pressure : / mmHG Vent. Rate : 119 BPM Atrial Rate : 119 BPM P-R Int : 178 ms QRS Dur : 076 ms QT Int : 302 ms P-R-T Axes : 063 -31 064 degrees QTc Int : 424 ms Sinus tachycardia. Left axis deviation Nonspecific ST abnormality Abnormal ECG When compared with ECG of 11-AUG-2017 10:10, Vent. rate has increased BY [address] now depressed in Inferior leads Unconfirmed Result
[2019-10-24 11:17] LABS: URINE YEAST NONE SEEN
--- NOTE | 2019-10-24 11:23 | HISTORY AND PHYSICAL ---
PRIMARY CARE PROVIDER: Dr. Alex Carver. CHIEF COMPLAINT: Shortness of breath. HISTORY OF PRESENT ILLNESS: Ms Leila Koehler is an 83-year-old female with a medical history of severe dementia, who is nearly nonverbal. She has been bed-bound for awhile now coming from [facility]. Apparently, she was found to have low O2 saturations, shortness of breath. She was tachycardic, had a fever of 104.8 that was documented prior to leaving [facility]. She remained hypoxic, was placed on BiPAP. Chest x-ray shows bibasilar pneumonia with signs and symptoms of sepsis. Lactate is elevated. She has been started on broad-spectrum antibiotics and IV fluid hydration. Her daughter is an electrical technology instructor, Maxine Wills. Her phone is [phone]. She just left for [place] yesterday. Speaking to her by phone, apparently last week she was pretty sick, even called in Palliative to discuss end of life as she was nonverbal and essentially unresponsive until this past , which was around 3 days ago, she perked back up and was back to her normal self according to the daughter. So, the daughter left yesterday and went to [place], and should be back on Thursday unless she gets called in to come in sooner, and she is okay if we consult Palliative on this admission. PAST MEDICAL HISTORY: 1. Dementia. 2. Rheumatoid arthritis. 3. GERD. 4. Dyslipidemia. 5. Hypertension. 6. Chronic urinary tract infections. 7. Insomnia. 8. GI bleed history. 9. Hypothyroidism. 10. Chronic constipation. 11. Iron deficiency anemia. SURGICAL HISTORY: 1. Cholecystectomy. 2. Umbilical hernia repair. 3. Appendectomy. 4. Hysterectomy. SOCIAL HISTORY: Denies tobacco, however she does dip snuff. No alcohol. No illicit drug use. She is a resident of [facility] and is a do not resuscitate level 1. FAMILY HISTORY: The daughter denies. ALLERGIES: No known drug allergies. HOME MEDICATIONS: Not reconciled yet. REVIEW OF SYSTEMS: Unable to obtain due to patient's cognitive status. PHYSICAL EXAMINATION: VITAL SIGNS: Temperature 99.2 degrees, heart rate 114, respiratory rate 36, blood pressure 117/86, O2 saturation 98% on BiPAP, 5 feet 4 inches tall, 110 pounds with a BMI of 18.9. GENERAL: Ms. Leila Koehler is an 83-year-old female. She is in no acute distress. She is tolerating a BiPAP. It is reported that she is nonverbal, but she appears to be trying to speak through the BiPAP. Alert. Eyes open. Turns head toward speaker, but does not necessarily nod to questions and will not follow commands, but is purposeful with her movements. HEENT: Atraumatic, normocephalic. Pupils are equal and reactive. Mucous membranes are dry. No teeth. NECK: Trachea midline. CARDIOVASCULAR: S1, S2. Tachycardic rate and rhythm. No rubs, gallops, murmurs. No lower extremity edema. +2 dorsalis and radial pulses. Negative for JVD or carotid bruits. PULMONARY: She is actually clear to auscultate. Bilateral breath sounds decreased in the bases. No accessory muscle use or work of breathing noted. GI: Soft, nontender, nondistended. Positive bowel sounds x4, but hypoactive. There was dried black-colored stool around the rectal entrance or the anal entrance, which could possibly be old blood in the stool. EXTREMITIES: They almost appear somewhat contracted. The knees are bent. Arms are bent. The wrists and the fingers tend to be a little bent. NEUROLOGIC: Opens eyes. Turns head toward speaker. Does not follow commands. Is currently nonverbal, but has a BiPAP mask on. SKIN: Warm, dry, intact. There is no sacral decubitus. It is dark on the bottom, but no openings. Multiple bruising throughout the body. LABORATORY DATA: White blood cells 13,000, hemoglobin 13, hematocrit 43, platelet count 410. INR is 1.34, PTT is 39.5. ABGs: pH 7.48, pCO2 of 36, PO2 61, bicarbonate 27.4, base excess is 3.4, saturation 92.7%. Lactate 2.8 and that was on non-rebreather. Sodium 144, potassium 4.7, BUN 19, creatinine 0.8, glucose 124, calcium 10.4. Bilirubin 0.39, AST 18, ALT 6, CK 54, troponin is 51. Albumin 3.0. Lactate 2.7. IMAGING: Chest x-ray: Bibasilar infiltrates. ASSESSMENT AND PLAN: 1. Healthcare-associated bibasilar pneumonia. She has been started on broad-spectrum antibiotics given the signs and symptoms of sepsis. Currently on BiPAP nebulizers. 2. Acute hypoxemic respiratory failure secondary to pneumonia. She also had a fever of 104.8 that was documented at [facility], so we will go ahead and test her for influenza as well. We will consult Pulmonary. She is on nebulizers. 3. Sepsis secondary to #1. Broad-spectrum antibiotics. We will do serial lactates. Intravenous fluid hydration. 4. Dementia. Waiting for home medications to be reconciled. Apparently, she can still take in nectar thick liquids, so that has been ordered to continue after she passes a swallow after she is off BiPAP. 1. It looked like the stool appeared to be black around the rectum. Will test for blood in the stool, but currently history of iron deficiency anemia, but she has got a normal hemoglobin/ hematocrit. 2. Hypertension is stable at this time. We will hold off on antihypertensives as she is currently septic just to decrease risk for hypotension. 3. Gastroesophageal reflux disease. 4. Rheumatoid arthritis. 5. Hypothyroidism. Waiting for Synthroid to be verified. 6. Resuscitation status is do not resuscitate level 1, and daughter is okay with consulting Palliative Care. Dictated by DELANEY Byrne for Bren Voss MD cc: DELANEY Byrne MD
[2019-10-24] MEDS: XOPENEX NEB INH SCH ×4 (11:28→23:53)
[2019-10-24] MEDS: ATROVENT NEB INH SCH ×4 (11:28→23:53)
[2019-10-24] MEDS: NS 1,000 ML IV SCH ×2 (12:18→21:58)
[2019-10-24] MEDS ORDERED: VANCOMYCIN 1,250 MG in NS 250 ML IV ONE (13:00)
[2019-10-24] MEDS: MAXIPIME 1 GM in NS 50 ML IV SCH (17:01)
[2019-10-24] MEDS: PULMICORT INH SCH (20:10)
[2019-10-24] MEDS ORDERED: NS 500 ML IV ONE (21:49)
[2019-10-24] MEDS ORDERED: ATIVAN IV ONE (21:49)
[2019-10-24] MEDS: OFIRMEV 1000 MG/ISOTONIC SOLN 1,000 MG/100 ML BOTTLE IV PRN (21:59)
[2019-10-25] MEDS: ATROVENT NEB INH SCH ×6 (04:31→22:50)
[2019-10-25] MEDS: XOPENEX NEB INH SCH ×6 (04:31→22:50)
[2019-10-25] MEDS: MAXIPIME 1 GM in NS 50 ML IV SCH ×2 (04:35→16:31)
[2019-10-25] MEDS: NS 1,000 ML IV SCH (05:38)
[2019-10-25] MEDS ORDERED: CALMOSEPTINE OINTMENT TOP PRN (06:19)
[2019-10-25 06:23] LABS: BASO# 0.01 X1000 (0.0-0.2); BASO% 0.1 % (0.0-0.8); HEMATOCRIT 33.9 % (37.0-47.0); HEMOGLOBIN 10.1 g/dL (12.0-16.0); IMM GRAN% 0.8 % (0.0-0.5); LYMPH# 1.79 X1000 (1.2-3.4); LYMPH% 14.9 % (20.5-51.1); MCH 26.3 PG (27-31); MCHC 29.8 g/dL (33-37); MCV 88.3 FL (81-99); MONO# 0.15 X1000 (0.11-0.59); MONO% 1.2 % (1.7-9.3); MPV 9.5 FL (7.4-10.4); NEUT# 9.96 X1000 (1.4-6.5); PLT 255 X1000 (130-400); RBC 3.84 XMIL (4.2-5.4); RDW 15.2 % (11.5-14.5); WBC 12.01 X1000 (4.8-10.8)
[2019-10-25 06:33] LABS: AGAP 12; ALB/GLOB RATIO 0.5; ALKALINE PHOSPHATASE 50 U/L (32-104); BUN 22 mg/dL (8-22); CALCIUM 9.5 mg/dL (8.8-10.2); CHLORIDE 114 mmol/L (98-107); COSMO 296; CREATININE 0.5 mg/dL (0.5-0.9); ESTIMATED GFR > 60; GLUCOSE 103 mg/dL (70-104); GOT 25 U/L (10-30); GPT 7 U/L (10-36); POTASSIUM 3.4 mmol/L (3.5-5.1); SODIUM 147 mmol/L (136-145); TCO2 21 mmol/L (25-35); TOTAL BILIRUBIN 0.25 mg/dL (0.20-1.00); TOTAL PROTEIN 5.8 g/dL (6.3-8.3)
[2019-10-25 06:54] LABS: BANDS 40 % (0-1); LYMPHS 14 % (21-51); SEGS 44 % (42-75)
--- NOTE | 2019-10-25 06:57 | PULMONOLOGY PROGRESS NOTE ---
DATE: 10/24/2019 REQUESTING CLINICIAN: Dr. Voss. REASON FOR CONSULTATION: Respiratory failure, on BiPAP. HISTORY OF PRESENT ILLNESS: Ms. Koehler is an 83-year-old female with severe dementia, who has had a fluctuating illness at the custodial. The patient is nonverbal and can provide no medical history. The patient was found to be hypoxemic with a temperature of 104 degrees, and was brought to the emergency room. Chest x-ray was performed, which revealed patchy bilateral infiltrates. Arterial blood gas reveals a pH of 7.48, pCO2 of 36, PO2 of 61 on a nonrebreather. PAST MEDICAL HISTORY/PROBLEM LIST: 1. Dementia. 2. Rheumatoid arthritis. 3. Recurrent urinary tract infection. 4. Gastroesophageal reflux disease. PAST SURGICAL HISTORY: 1. Status post cholecystectomy. 2. Status post appendectomy. 3. Status post hysterectomy. SOCIAL HISTORY: The patient lives at the custodial. Previously used oral tobacco. No alcohol or cigarette use noted. FAMILY HISTORY: Noncontributory to current presentation. REVIEW OF SYSTEMS: Cannot be obtained. PHYSICAL EXAMINATION: General: A thin, chronically ill-appearing, white female. She opens her eyes, but will not focus on the examiner. She has rhythmic opening and closing of her mouth, with a slightly protruded tongue. Vital Signs: Current temperature 100.9 degrees, blood pressure 130/90, respiratory rate 22, oxygen saturation 99%. HEENT: Pupils are equal. Oropharynx appears dry. Neck: Supple. Chest: Rhonchi bilaterally. Cardiac: Increased rate. S1, S2. Abdomen: Soft. Extremities: Flexed, but not contracted. LABORATORY DATA: White blood count 13.88, hemoglobin 13.1, platelet count 410,000. Urinalysis reveals trace ketones, moderate blood, but no nitrates, and less than 10 white blood cell per high- power field. IMPRESSION: An 83-year-old with: 1. Acute hypoxemic respiratory failure. 2. Aspiration pneumonia. 3. Dementia. 4. Sepsis without evidence of severe sepsis. PLAN: 1. Agree with broad-spectrum antibiotics. 2. Continue bronchodilators. 3. Continue fluids as you are doing. 4. Agree with end-of-life discussions as have been initiated. cc: Marcelo Palmer MD
[2019-10-25] MEDS: PULMICORT INH SCH ×2 (07:44→20:01)
[2019-10-25] MEDS ORDERED: NS 1,000 ML IV SCH (08:33)
[2019-10-25] MEDS ORDERED: NORCO-5 PO PRN (09:37)
--- NOTE | 2019-10-25 09:57 | PROGRESS NOTE ---
DATE: 10/25/2019 INTERVAL HISTORY: No acute events overnight. She has had frequent episodes of fever with T-max of 101.8 degrees and tachycardia. She was able to be weaned down to 50% Ventimask. SUBJECTIVE: Ms. Koehler is nonverbal, is not able to participate in clinical encounter. She moans and groans and frequently coughs. OBJECTIVE: Vital Signs: Currently, temperature 98.3 degrees, pulse 106, respiratory rate 16 blood pressure 168/81, she is saturating 98% on 50% Ventimask. She has 500 mL of urine output. General: She keeps her mouth open. She does have frequent lip-smacking movement of her mouth. Lungs: She has inspiratory crackles in bilateral infra-axillary region. No wheeze, rhonchi. Adequate air entry, bilateral supramammary region. Cardiovascular: S1, S2 normal. Tachycardic. No murmur or gallop. Abdomen: Soft, nontender. Extremities: No lower extremity edema. : She has a Burgos catheter. LABORATORY DATA: Labs suggestive of leukocytosis, normocytic anemia with hemoglobin of 10.1, platelet 255,000, hypernatremia, hypokalemia, hyperchloremia, normal BUN, normal creatinine. MICROBIOLOGY: Stool occult blood test was positive. Urine culture is growing gram-negative rods. IMAGING: No new chest x-ray. ASSESSMENT AND PLAN: 1. Sepsis and acute hypoxic respiratory failure due to bilateral lower lobe likely aspiration pneumonia. Continue intravenous vancomycin, intravenous cefepime, and follow up final blood culture results. I will decrease her intravenous fluid rate. 2. Acute gastrointestinal bleed with positive fecal occult blood test. Her drop in hemoglobin could also be related to intravenous fluids. I will keep her on intravenous pantoprazole, and follow up with CBC. 3. History of dementia with behavioral disturbance. I will continue her home medication of divalproex, mirtazapine, and will add back other medications as tolerated. 4. Hypernatremia, hyperchloremia, hypokalemia. I will decrease the intravenous fluid rate. I will replete her potassium. Her lactic acidosis was improving after intravenous fluid resuscitation. Will continue to monitor the patient inside the hospital. Palliative Care Team has been consulted for goals of care discussion. cc: MD ELIANE Velasco
[2019-10-25] MEDS: PROTONIX IV SCH ×2 (10:17→21:37)
[2019-10-25] MEDS: D5 1/2 NS 1,000 ML IV SCH (10:17)
[2019-10-25] MEDS: SODIUM CHLORIDE 0.9% INJ SCH ×2 (10:18→21:37)
--- NOTE | 2019-10-25 10:20 | SEPSIS: TISSUE PERFUSION ASSMT ---
Sepsis: Tissue Perfusion Assmt - Physical Exam Assessment Date: 10/25/19 Time Assessment Initialized: 09:30 Vital Signs: Last Vital Signs Temp 98.3 F 10/25/19 08:00 Pulse 104 H 10/25/19 08:00 Resp 26 H 10/25/19 08:00 BP 168/81 10/25/19 08:00 Pulse Ox 98 10/25/19 08:00 Height 5 ft 4 in Weight 47.23 kg Lung Sounds: lungs clear, crackles Heart Sounds: Regular Capillary Refill Time: Less Than 2 Seconds Peripheral Pulse Evaluation: radial (R): 2+, radial (L): 2+, dorsalis-pedis (R): 2+, dorsalis-pedis (L): 2+, posterior tibialis (R): 2+, posterior tibialis (L): 2+ Skin Exam: pink - Alternative Fluid Bolus Bolus Option: Alternative Fluid Resuscitation Bolus for morbidly obese patients with a BMI >30, Refer to Paper Gering Body Weight Chart for Reference. Is patient's BMI >30?: No Fluid Bolus dosed using the Paper Gering Body Weight Chart: Yes Patient's Gering Body Weight: 47 - Impression Impression: Tissue Perfusion Adequate - Plan Plan: No Change
[2019-10-25] MEDS: POTASSIUM CHLORIDE 20 MEQ/SWI 20 MEQ/100 ML IVPB IV SCH ×2 (10:25→13:23)
--- NOTE | 2019-10-25 20:10 | PULMONOLOGY PROGRESS NOTE ---
DATE: 10/25/2019 SUBJECTIVE: The patient appears to be resting comfortably. She does not have rhythmic mouth movements this morning. She does not respond to voice. OBJECTIVE: Vital Signs: Maximum temperature in the last 24 hours is 101.8 degrees. She has been afebrile since after midnight. BP 153/82, heart rate 111, respiratory rate 22, oxygen saturation 99% on 50% Venturi mask. HEENT: Pupils are equal but difficult to see by keeping her eyes closed. Oropharynx appears dry. Neck: Supple. Chest: Reveals occasional rhonchi bilaterally. Cardiac exam: S1, S2. Abdomen: Soft. Extremities: Without edema. LABORATORIES: White blood count 12.01, hemoglobin 10.1, platelet count 255,000, sodium 147, potassium 3.4, chloride 114, bicarbonate 21, BUN 22, creatinine 0.5. MICROBIOLOGY: Reveals a gram-negative viktor in her urine. IMPRESSION: An 83-year-old with: 1. Acute hypoxemic respiratory failure. 2. Aspiration pneumonia. 3. Dementia. 4. Sepsis without evidence of severe sepsis or septic shock. 5. Urinary tract infection. PLAN: 1. Continue current antibiotic regimen. 2. Continue bronchodilators. 3. Follow up chest x-ray tomorrow. cc: Marcelo Palmer MD
[2019-10-25] MEDS: OFIRMEV 1000 MG/ISOTONIC SOLN 1,000 MG/100 ML BOTTLE IV PRN (21:37)
[2019-10-26] MEDS: DEPAKOTE SPRINKLE PO SCH ×4 (00:10→22:13)
[2019-10-26] MEDS: FERROUS SULFATE PO SCH ×3 (00:23→22:14)
[2019-10-26] MEDS: REMERON PO SCH ×2 (00:23→22:13)
[2019-10-26] MEDS ORDERED: ATIVAN IV ONE (02:06)
[2019-10-26] MEDS: ATROVENT NEB INH SCH ×6 (03:28→23:13)
[2019-10-26] MEDS: XOPENEX NEB INH SCH ×6 (03:28→23:13)
[2019-10-26] MEDS: MAXIPIME 1 GM in NS 50 ML IV SCH ×2 (03:47→16:30)
[2019-10-26] MEDS: D5 1/2 NS 1,000 ML IV SCH (06:17)
--- NOTE | 2019-10-26 06:32 | Diag Imaging Result Doc PS360 ---
CHEST-PORTABLE - 10/26/2019 INDICATION: abnormal exam COMPARISON: 10/24/2019 FINDINGS: There has been worsening in the ill-defined mixed bibasilar and central infiltrates. Heart size remains top normal. No pneumothorax or large pleural effusion. IMPRESSION: Worsening indeterminate bilateral central and basilar infiltrates. Electronically signed by Jin Cantu 10/26/2019 6:30 AM
[2019-10-26] MEDS ORDERED: PRILOSEC PO SCH (07:00)
[2019-10-26] MEDS ORDERED: SYNTHROID PO SCH (07:00)
[2019-10-26 07:03] LABS: BASO# 0.01 X1000 (0.0-0.2); BASO% 0.1 % (0.0-0.8); HEMATOCRIT 29.8 % (37.0-47.0); HEMOGLOBIN 8.8 g/dL (12.0-16.0); IMM GRAN# 0.04 X1000 (0.0-0.04); IMM GRAN% 0.4 % (0.0-0.5); LYMPH# 1.11 X1000 (1.2-3.4); LYMPH% 11.3 % (20.5-51.1); MCHC 29.5 g/dL (33-37); MCV 88.2 FL (81-99); MONO# 0.15 X1000 (0.11-0.59); MONO% 1.5 % (1.7-9.3); MPV 9.7 FL (7.4-10.4); NEUT# 8.51 X1000 (1.4-6.5); NEUT% 86.7 % (42.2-75.2); PLT 279 X1000 (130-400); RBC 3.38 XMIL (4.2-5.4); RDW 15.2 % (11.5-14.5); WBC 9.82 X1000 (4.8-10.8)
[2019-10-26 07:33] LABS: AGAP 11; ALB/GLOB RATIO 0.6; ALBUMIN 2.1 g/dL (3.5-5.0); ALKALINE PHOSPHATASE 67 U/L (32-104); BUN 18 mg/dL (8-22); CALCIUM 8.9 mg/dL (8.8-10.2); CHLORIDE 112 mmol/L (98-107); COSMO 292; CREATININE 0.5 mg/dL (0.5-0.9); ESTIMATED GFR > 60; GLUCOSE 116 mg/dL (70-104); GOT 25 U/L (10-30); GPT 8 U/L (10-36); SODIUM 145 mmol/L (136-145); TCO2 22 mmol/L (25-35); TOTAL BILIRUBIN 0.22 mg/dL (0.20-1.00); TOTAL PROTEIN 5.6 g/dL (6.3-8.3)
[2019-10-26] MEDS: PULMICORT INH SCH ×2 (07:49→19:48)
[2019-10-26] MEDS ORDERED: SODIUM CHLORIDE 0.9% INJ PRN (08:51)
[2019-10-26] MEDS ORDERED: SYNTHROID IV ONE (08:51)
[2019-10-26] MEDS ORDERED: SODIUM CHLORIDE 0.9% INJ ONE (08:51)
[2019-10-26] MEDS ORDERED: LABETALOL IV PRN (08:59)
--- NOTE | 2019-10-26 09:26 | PROGRESS NOTE ---
DATE: 10/26/2019 INTERVAL HISTORY: No acute events overnight. SUBJECTIVE: Ms. Koehler is sleeping. Her daughter is at bedside, who just flew in from [place]. SUBJECTIVE: Ms. Koehler as we mentioned is not able to participate in the clinical encounter meaningfully. VITALS: She has not had any fever. Temperature of 99 degrees, pulse of 96, respiratory 21, blood pressure 164/80. She is saturating 98% on 40% Venturi mask. PHYSICAL EXAMINATION: HEENT: Showed oral cavity is dry. She has a surgical pupil on the right side. Pupil is reacting to light on the left side briskly. Lungs: Air entry bilaterally equal. No wheeze or rhonchi. Inspiratory crackles in bilateral infrascapular and infra-axillary region. Heart: S1, S2 normal. No murmur or gallop. Abdomen: Scaphoid, soft, nontender. She has a urine catheter. Neurologic: She is fidgety, often times moans and groans, but not able to participate in the encounter meaningfully. Skin: Turgor is normal. Capillary refill time is normal. Intact dorsalis pedis and posterior tibial pulses. LABS: Suggestive of decreasing leukocyte to 9000, hemoglobin of 8.8, platelet 279. Potassium is 3.1, sodium 145. She has normal kidney function. MICROBIOLOGY: Urine culture is growing Escherichia coli which is sensitive to cefazolin, as well as levofloxacin. IMAGING: No new imaging today, except chest x-ray which had worsening bilateral infiltrates. ASSESSMENT AND PLAN: 1. Sepsis and acute hypoxic respiratory failure due to bilateral lower lobe multifocal pneumonia, likely aspiration. Continue intravenous vancomycin, cefepime. Follow up blood culture results. Continue intravenous fluids while the patient has not been able to take by mouth with careful monitoring of respiratory status. I will titrate her oxygen down to maintain saturation more than 94%. 2. Acute cystitis without hematuria due to Escherichia coli. 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 I will continue her intravenous cefepime. 3. Acute gastrointestinal bleed. She continues to have a drop in her hemoglobin. I will continue intravenous pantoprazole every 12 hours, and continue to monitor her complete blood count daily. Follow up iron panel. If she is not able to take by mouth, she may need intravenous iron. 4. History of dementia with behavioral disturbance. The patient has not been able to take her divalproex mirtazapine. I will give her intravenous morphine as needed for pain, agitation, as well as shortness of breath. 5. Hypernatremia, hyperchloremia, hypokalemia improving. I will replete her intravenous potassium. DISPOSITION: Continue to monitor patient inside PVC unit. Plan of care was discussed with the patient's daughter at bedside. She was allowed to ask questions. All of her questions were answered. The patient's code status is DNR level 1. cc: Hernan Bear MD
[2019-10-26] MEDS: MIRALAX PO SCH (09:39)
[2019-10-26 09:42] LABS: IRON SATURATION 13 %; TIBC 150 ug/dL; TOTAL IRON 19 ug/dL (49-151); UNBOUND IRON 131 ug/dL (112-346)
[2019-10-26 09:45] LABS: FERRITIN 141 ng/mL (13-150)
[2019-10-26] MEDS: MORPHINE IV PRN (10:04)
[2019-10-26] MEDS: OFIRMEV 1000 MG/ISOTONIC SOLN 1,000 MG/100 ML BOTTLE IV PRN (10:04)
[2019-10-26] MEDS: POTASSIUM CHLORIDE 20 MEQ/SWI 20 MEQ/100 ML IVPB IV SCH ×2 (10:05→12:15)
[2019-10-26] MEDS: SODIUM CHLORIDE 0.9% INJ SCH (10:06)
[2019-10-26] MEDS: PROTONIX IV SCH ×2 (10:06→22:14)
[2019-10-26] MEDS ORDERED: VANCOMYCIN 1 GM/NS 1 GM/250 ML IVPB IV SCH (13:00)
[2019-10-26] MEDS: FOLIC ACID 1 MG in NS 50 ML IV SCH (18:27)
--- NOTE | 2019-10-27 00:52 | PULMONOLOGY PROGRESS NOTE ---
DATE: 10/26/2019 SUBJECTIVE: Patient appears to be resting comfortably in her bed. She has no increased work of breathing. OBJECTIVE: Vital Signs: Maximum temperature in the last 24 hours is 100.3 degrees, blood pressure 158/82, heart rate 89, respiratory rate 26, oxygen saturation 96% on 2 L per nasal cannula. HEENT: Pupils are equal and reactive. Oropharynx appears dry. Neck: Supple. Chest: Reveals scattered rhonchi bilaterally. Cardiac: S1-S2. Abdomen: Soft. Extremities: Without edema. LABORATORIES: Chest x-ray reveals worsening bilateral infiltrates. Urine culture reveals E coli. White blood count is 9.82, hemoglobin 8.8, platelet count 279,000. IMPRESSION: An 83-year-old with: 1. Aspiration pneumonia. 2. Dementia. 3. Hypoxemic respiratory failure. 4. Sepsis without evidence of severe sepsis or septic shock. 5. Urinary tract infection. RECOMMENDATION: 1. Continue current antibiotic regimen. 2. Continue bronchodilators. 3. Agree with current resuscitation status which will allow patient to have a natural if she expires during this hospitalization. cc: Marcelo Palmer MD
[2019-10-27] MEDS: D5 1/2 NS 1,000 ML IV SCH ×2 (03:25→22:52)
[2019-10-27] MEDS: MAXIPIME 1 GM in NS 50 ML IV SCH ×2 (03:25→17:06)
[2019-10-27] MEDS: XOPENEX NEB INH SCH ×5 (03:39→20:05)
[2019-10-27] MEDS: ATROVENT NEB INH SCH ×5 (03:39→20:05)
[2019-10-27] MEDS: SYNTHROID IV SCH ×2 (05:47→06:00)
[2019-10-27 07:03] LABS: AGAP 11; ALB/GLOB RATIO 0.5; ALKALINE PHOSPHATASE 73 U/L (32-104); BUN 11 mg/dL (8-22); CALCIUM 9.3 mg/dL (8.8-10.2); CHLORIDE 108 mmol/L (98-107); COSMO 277; CREATININE 0.4 mg/dL (0.5-0.9); ESTIMATED GFR > 60; GLUCOSE 104 mg/dL (70-104); GOT 25 U/L (10-30); GPT 10 U/L (10-36); POTASSIUM 3.6 mmol/L (3.5-5.1); SODIUM 139 mmol/L (136-145); TCO2 20 mmol/L (25-35); TOTAL BILIRUBIN 0.25 mg/dL (0.20-1.00); TOTAL PROTEIN 5.8 g/dL (6.3-8.3)
[2019-10-27] MEDS: PULMICORT INH SCH ×2 (08:11→20:05)
[2019-10-27 08:14] LABS: BASO# 0.01 X1000 (0.0-0.2); BASO% 0.1 % (0.0-0.8); EOS# 0.03 X1000 (0.0-0.7); EOS% 0.4 % (0.0-10.0); HEMATOCRIT 30.8 % (37.0-47.0); HEMOGLOBIN 9.2 g/dL (12.0-16.0); IMM GRAN# 0.05 X1000 (0.0-0.04); IMM GRAN% 0.7 % (0.0-0.5); LYMPH% 15.7 % (20.5-51.1); MCH 26.1 PG (27-31); MCHC 29.9 g/dL (33-37); MCV 87.5 FL (81-99); MONO% 2.6 % (1.7-9.3); NEUT# 6.14 X1000 (1.4-6.5); NEUT% 80.5 % (42.2-75.2); PLT 268 X1000 (130-400); RBC 3.52 XMIL (4.2-5.4); WBC 7.63 X1000 (4.8-10.8)
[2019-10-27] MEDS: FERROUS SULFATE PO SCH (08:34)
[2019-10-27] MEDS: MIRALAX PO SCH (08:34)
[2019-10-27] MEDS: DEPAKOTE SPRINKLE PO SCH (08:34)
[2019-10-27] MEDS: PROTONIX IV SCH ×2 (09:14→22:52)
--- NOTE | 2019-10-27 10:31 | PROGRESS NOTE ---
DATE: 10/27/2019 SUBJECTIVE: No acute events overnight. She did have a temperature of 100.3 yesterday. Her blood pressure has been 170s. She was sleepy, but easily arousable to strong verbal stimuli. Her daughter is at bedside. OBJECTIVE: Vital Signs: Temperature 98.3 degrees, pulse 84, respiratory rate 23, blood pressure 171/71. She is saturating 95% on 2 liters nasal cannula. General: On physical examination, not in any acute distress. Oral cavity is dry. Lungs: Air entry bilaterally equal. No wheeze or rhonchi. Mild crackles in infraaxillary region, which are significantly improved. Cardiac: S1 and S2 normal. No murmur, rub, or gallop. Abdomen: Scaphoid, soft, nontender. She has urine catheter. Extremities: She is fidgety and moving all extremities spontaneously. She has intact dorsalis pedis and posterior tibial pulses. Capillary refill time is less than 2 seconds. Skin: Appears pink. LABORATORY DATA: Suggestive of hemoglobin of 9.2, platelet 268,000. BUN is 11, creatinine 0.4. No new microbiological or imaging data except chest x-ray which was done yesterday. ASSESSMENT: 1. Sepsis and acute hypoxic respiratory failure due to bilateral aspiration pneumonia. 2. Acute cystitis without hematuria due to Escherichia coli. 3. Acute gastrointestinal bleed leading to acute blood loss anemia. 4. History of dementia with behavioral disturbance. 5. Essential hypertension. PLAN: I will continue her on intravenous cefepime and intravenous vancomycin to complete a total of 5 days of antibiotics. We will titrate down oxygen as tolerated. We will continue her inhaled bronchodilators and intravenous Protonix IV b.i.d. DISPOSITION: I will transfer patient to routine medical floor, and my plan is to discharge her back to residential facility in the next 24 hours. Palliative Care Team on board, and the plan is for palliative team or hospice team to start following the patient up once she is back to half-way, which I will resume in the next 24 hours. I had a detailed discussion about this plan of care with the patient's daughter at bedside. I explained to her that considering her dementia and poor functional status, unfortunately she was going to be at risk of recurrent aspiration, be it food or even respiratory secretions, and I explained to her that if the goals were to make her comfortable, then once she is back to half-way, they could consider starting her on some soft diet, and if she developed pneumonia let it take its natural course. The patient's daughter is teary, but is in agreement with the plan. cc: Hernan Bear MD
[2019-10-27] MEDS: NITROGLYCERIN TOP SCH ×3 (10:34→22:52)
[2019-10-27] MEDS: FOLIC ACID 1 MG in NS 50 ML IV SCH (17:07)
[2019-10-27] MEDS: MORPHINE IV PRN (21:05)
--- NOTE | 2019-10-27 21:46 | PULMONOLOGY PROGRESS NOTE ---
DATE: 10/27/2019 SUBJECTIVE: The patient's eyes are open. It is not clear whether she focuses on the examiner. She does not respond to voice or questioning. She has continued rhythmic opening and closing of her mouth. OBJECTIVE: Vital Signs: Maximum temperature in the last 24 hours is 100.3 degrees, blood pressure 160/95, heart rate 84, respiratory rate 19, oxygen saturation 95% on 2 L per nasal cannula. HEENT: Pupils are equal. Oropharynx appears clear, but dry. Neck: Supple. Chest: Occasional rhonchi bilaterally. LABORATORY: White blood count is 7.6, hemoglobin 9.2, platelet count 268,000. Sodium 139, potassium 3.6, chloride 108, bicarbonate 20, BUN 11, creatinine 0.4. IMPRESSION: An 83-year-old with: 1. Aspiration pneumonia, with continued improvement. 2. Dementia. 3. Hypoxemic respiratory failure. 4. Urinary tract infection. DISCUSSION: 83-year-old with problems outlined above. Palliative Care discussions have been held by Dr. Bear. Current plan [facility]. If she aspirates again, he has recommended comfort measures. PLAN: 1. Complete antibiotic regimen. 2. Continue bronchodilators. 3. Agree with plans to transition [facility] to the jail. cc: Marcelo Palmer MD
[2019-10-28] MEDS: ATROVENT NEB INH SCH ×4 (00:24→11:11)
[2019-10-28] MEDS: XOPENEX NEB INH SCH ×4 (00:24→11:10)
[2019-10-28] MEDS: NITROGLYCERIN TOP SCH ×2 (03:45→11:36)
[2019-10-28] MEDS: MAXIPIME 1 GM in NS 50 ML IV SCH (03:45)
[2019-10-28] MEDS: DEPAKOTE SPRINKLE PO SCH ×2 (05:04→08:32)
[2019-10-28] MEDS: FERROUS SULFATE PO SCH ×2 (05:05→08:32)
[2019-10-28] MEDS: SYNTHROID IV SCH (07:06)
[2019-10-28 08:00] LABS: EOS# 0.13 X1000 (0.0-0.7); EOS% 2.2 % (0.0-10.0); HEMATOCRIT 28.6 % (37.0-47.0); HEMOGLOBIN 8.6 g/dL (12.0-16.0); IMM GRAN# 0.05 X1000 (0.0-0.04); IMM GRAN% 0.8 % (0.0-0.5); LYMPH# 1.34 X1000 (1.2-3.4); LYMPH% 22.4 % (20.5-51.1); MCH 25.8 PG (27-31); MCHC 30.1 g/dL (33-37); MCV 85.9 FL (81-99); MONO# 0.24 X1000 (0.11-0.59); MPV 8.8 FL (7.4-10.4); NEUT# 4.22 X1000 (1.4-6.5); NEUT% 70.6 % (42.2-75.2); PLT 279 X1000 (130-400); RBC 3.33 XMIL (4.2-5.4); RDW 14.5 % (11.5-14.5); WBC 5.98 X1000 (4.8-10.8)
[2019-10-28] MEDS: PULMICORT INH SCH (08:11)
[2019-10-28 08:24] LABS: AGAP 11; ALB/GLOB RATIO 0.6; ALKALINE PHOSPHATASE 59 U/L (32-104); BUN 7 mg/dL (8-22); CALCIUM 8.9 mg/dL (8.8-10.2); CHLORIDE 100 mmol/L (98-107); COSMO 273; CREATININE 0.4 mg/dL (0.5-0.9); ESTIMATED GFR > 60; GLUCOSE 122 mg/dL (70-104); GOT 13 U/L (10-30); GPT 7 U/L (10-36); SODIUM 137 mmol/L (136-145); TCO2 26 mmol/L (25-35); TOTAL BILIRUBIN 0.21 mg/dL (0.20-1.00); TOTAL PROTEIN 5.2 g/dL (6.3-8.3)
[2019-10-28] MEDS: MORPHINE IV PRN ×2 (08:30→15:05)
[2019-10-28 08:31] LABS: POTASSIUM 2.5 mmol/L (3.5-5.1)
[2019-10-28] MEDS: POTASSIUM CHLORIDE 20 MEQ/SWI 20 MEQ/100 ML IVPB IV SCH ×3 (10:01→15:02)
[2019-10-28] MEDS: PROTONIX IV SCH (10:05)
[2019-10-28] MEDS ORDERED: ROXANOL CONC. LIQUID PO PRN ×2 (10:42→10:57)
[2019-10-28] MEDS ORDERED: MORPHINE IV ONE (10:42)
[2019-10-28] MEDS ORDERED: TYLENOL PR PRN (10:46)
--- NOTE | 2019-10-28 11:53 | DISCHARGE SUMMARY ---
ADMISSION DATE: 10/24/2019 DISCHARGE DATE: 10/28/2019 DISCHARGE DISPOSITION: Back to [facility] and their palliative services would start following the patient for hospice care. DISCHARGE CONDITION: The patient is breathing and saturating more than 94% on 3 L nasal cannula. Does not appear in acute distress. Patient's daughter is at bedside. DISCHARGE DIAGNOSES: 1. Sepsis and acute hypoxic respiratory failure due to bilateral aspiration pneumonia. 2. Acute cystitis without hematuria due to Escherichia coli urinary tract infection. 3. Acute gastrointestinal bleed leading to acute blood loss anemia. 4. History of dementia with behavior disturbance. 5. Essential hypertension. 6. Hypokalemia. OTHER DISCHARGE DIAGNOSES: 1. History of rheumatoid arthritis. 2. History of chronic gastroesophageal reflux disease. 3. History of hyperlipidemia. 4. Essential hypertension. 5. History of multiple urinary tract infection. 6. History of a gastrointestinal bleed in the past. 7. Iron deficiency anemia. 8. Acute likely upper gastrointestinal bleed leading to acute blood loss anemia, though not requiring transfusion during this admission. DISCHARGE MEDICATIONS: Scopolamine 1.5 mg every 72 hours 1 patch once every 3 days. Alprazolam 0.25 mg t.i.d. as needed for anxiety. Ipratropium bromide nebulization 0.5 mg every 4 hours. Morphine 0.5 mg IV every 6 hours as needed for pain more than 7/10. Budesonide 0.5 mg inhaled b.i.d. Morphine liquid 10 mg every 4 hours for pain more than 7/10 if the patient was able to take by mouth. Levalbuterol nebulization 1.25 mg inhaled every 4 hours as needed for shortness of breath. Acetaminophen suppository 650 mg every 6 to every 8 hours as needed for pain less than 7/10. PHYSICAL EXAMINATION: Current Vitals: Temperature of 98.1 degrees, pulse 84, respiratory rate 18, blood pressure of 149/69. She is saturating 95% on 2 L nasal cannula. General: Ms Barrett is sleepy, does not appear in acute distress. Chest: She has air entry bilaterally equal. No wheeze or rhonchi or crackles. Cardiac: S1, S2 normal. No murmur or gallop. Abdomen: Soft, nontender. Extremities: No lower extremity edema. : She has a urine catheter. Neuro: She has choreiform movement of the face. She is drowsy but arousable to strong verbal stimuli. LABS AT DISCHARGE: WBC 5.9, hemoglobin 8.6, platelet 279,000. Potassium of 2.5, which is currently being repleted with 60 mEq of IV potassium. BUN 7, creatinine 0.4. Microbiology during hospital admission shows urine culture was growing Escherichia coli. Stool occult blood test was positive. Influenza and blood cultures were negative. IMAGING DURING HOSPITAL ADMISSION: Chest x-ray on October 24 with bilateral basal infiltrate. Electrocardiogram on presentation had sinus tachycardia, left axis deviation, nonspecific ST abnormality. HOSPITAL COURSE SUMMARY: Ms. Koehler is an 83-year-old lady with past medical history of dementia who is a [facility] resident whose baseline status was being bed-bound, though she was able to identify family members. She was brought into the hospital for chief complaints of shortness of breath, fever, lethargy when she presented to the emergency room. She was found to have temperature of 101.8 degrees during hospital admission, pulse of 124, respiratory rate of 30, and blood pressure of 107/86. In the emergency room, her initial saturation was 92% and she was started on BiPAP, intravenous fluids and intravenous antibiotics. The patient was treated with oxygen for acute hypoxic respiratory failure due to bilateral likely aspirational lower lobe pneumonia. She was also started on inhaled bronchodilators and intravenous antibiotics. Following the treatment, patient's clinical condition improved. Her leukocytosis resolved and so far she has received almost 5 days of intravenous antibiotics. The patient's oxygen requirement went down and she was able to be transitioned from BiPAP to Ventimask to a simple nasal cannula and she is saturating well. She did have black tarry stool with fecal occult blood test positive. It was treated with intravenous Protonix. She did not need any blood transfusion. Considering patient's advanced dementia, goals of care discussion was held with daughter who had decided to make the patient Do Not Resuscitate level 1, so the [facility] care services would follow her for hospice care. TIME ATTESTATION: 32 minutes' time was spent in discharging this patient. cc: Hernan Bear MD MTDD
[2019-10-28 12:19] VITALS: BP 158/67
[2019-10-28] MEDS: OFIRMEV 1000 MG/ISOTONIC SOLN 1,000 MG/100 ML BOTTLE IV PRN (12:41)
--- NOTE | 2019-10-28 19:25 | PULMONOLOGY PROGRESS NOTE ---
DATE: 10/28/2019 SUBJECTIVE: The patient is lying in the bed in no distress. Her eyes are closed. She does not respond to verbal stimuli. She does withdraw from pain. OBJECTIVE: Vital Signs: Blood pressure is 149/49 with a heart rate of 79, respirations are 18 to 22, temperature 98.1 degrees axillary with O2 saturations of 95% to 96% on 2 L nasal cannula. Eyes: Pupils are equal, round, react to light. Sclerae anicteric. HENT: Head is normocephalic, atraumatic. Mucous membranes are dry. Neck: Supple with trachea midline. Cardiovascular: Regular rate and rhythm. S1 and S2 appreciated. She has no lower extremity edema. Pulmonary: Breath sounds are clear and diminished throughout. Chest rises and falls symmetric with respiration. LABORATORY DATA: WBC is 5.9 with hemoglobin 8.6, hematocrit 28.6, and platelets of 279,000. Sodium 137, potassium 2.5, BUN 7, creatinine 0.4 with a glucose of 122. IMPRESSION: This is an 83-year-old female with: 1. Aspiration pneumonia. 2. Dementia. 3. Hypoxemic respiratory failure. 4. Urinary tract infection. PLAN: 1. Continue bronchodilators. 2. Complete her antibiotic regimen. 3. Discharge plan [facility] for the [facility]. 4. Code status. Patient [*]. Dictated by DELANEY Ridley for Marcelo Palmer MD cc: DELANEY Ridley MD
== END 2019-10-28 15:33 | DRG 871 ==
LOC: SUPCPDRO → ED 08:30 → SUATTDRO 10:34 → 2N 10:34 → 3N 10-27 14:56
PROVIDERS: ATTEND Internal Medicine